=== PATIENT | female | born 1965 | race Caucasian/White ===

== ENCOUNTER 2017-01-30 18:22 | Observation (INO) ==
[2017-01-30] MEDS ORDERED: SALINE FLUSH 10ml SYRINGE IVF PRN (18:39)
--- NOTE | 2017-01-30 18:46 | Emergency Department Report ---
Seizure HPI - General Chief Complaint: Seizure Stated Complaint: Seizure Time Seen by Provider: 01/30/17 18:38 Source: patient, family, other ([facility] staff) Mode of arrival: ambulatory Limitations: no limitations - History of Present Illness HPI Narrative: Patient has had 2 seizures now in the past 3 days. Initially the first seizure was thought to be related to a vasovagal event, however staff that witnessed a seizure is now present, and states that the patient was not going to the bathroom nor straining, and had no vasovagal syndrome prior to the seizure. Patient had her first seizure while she was sitting at the lunch table, suddenly fell to the side and was in a tonic seizure only. 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 Episode lasted approximately 20-25 seconds before resolved, patient had a 15-20 minute confusional episode thereafter. Since only other symptoms have been a sensation of dysuria with urgency for the past week, however she has had 2 negative UAs, but the symptoms seem worse today. Patient has stated history of seizures in the past, but has not had any seizures or seizure medicine for at least 8 years. Patient has mild MR, [facility] [place], and has both staff and a brass pickler that oversee her care daily. complaint: seizure Onset (ago): minute(s) - Related Data Home Medications Medication Instructions Recorded Confirmed Levothyroxine Sodium [Levoxyl] 75 mcg PO ACB #0 09/08/08 01/30/17 Losartan Potassium [Cozaar] 50 mg PO DAILY #0 09/08/08 01/30/17 Potassium Chloride [Klor-Con M20] 20 meq PO DAILY #0 09/08/08 01/30/17 Simvastatin 20 mg PO HS #0 09/08/08 01/30/17 Pioglitazone HCl [Actos] 15 mg PO QAM #0 03/18/12 01/30/17 Propranolol HCl 10 mg PO QID #0 03/18/12 01/30/17 Sucralfate 1 g PO QID #0 01/25/13 01/30/17 Amlodipine Besylate 5 mg PO DAILY #0 04/19/14 01/30/17 Sertraline HCl 100 mg PO DAILY #0 04/19/14 01/30/17 Aspirin [Aspirin EC] 81 mg PO DAILY #0 tab 05/06/15 01/30/17 Medroxyprogesterone Acetate 1 ml IM 3 MONTHS #1 ml 05/06/15 01/30/17 RisperiDONE [RisperDAL] 2 mg PO HS #0 05/06/15 01/30/17 Ziprasidone [Geodon] 60 mg PO BID #0 05/06/15 01/30/17 Lubiprostone [Amitiza] 24 mcg PO DAILY #0 05/28/15 01/30/17 Acetaminophen 650 mg PO Q6H PRN 01/27/17 01/30/17 Acetaminophen [Acetaminophen Extra 1,000 mg PO Q4H PRN 01/27/17 01/30/17 Strength] Benztropine Mesylate [Benztropine 0.5 mg PO BID 01/27/17 01/30/17 Mesylate] Calcium Carbonate [Calcium] 500 - 1,000 mg PO PRN PRN 01/27/17 01/30/17 Cranberry Fruit Extract/Vit C [Azo 450 - 900 mg PO TID PRN 01/27/17 01/30/17 Cranberry Softgel] DiphenhydrAMINE [Benadryl] 25 mg PO Q4H PRN 01/27/17 01/30/17 Docusate Sodium [Colace] 100 mg PO DAILY 01/27/17 01/30/17 Fenofibric Acid (Choline) 135 mg PO DAILY 01/27/17 01/30/17 [Fenofibric Acid] HydrOXYzine [Atarax] 25 mg PO TID 01/27/17 01/30/17 Ibuprofen 400 mg PO Q4H PRN 01/27/17 01/30/17 LORazepam [Ativan] 1 mg PO PRN PRN 01/27/17 01/30/17 Lactase [Lactaid] 3,000 unit PO PRN PRN 01/27/17 01/30/17 Loperamide [Imodium] 2 mg PO QID PRN 01/27/17 01/30/17 Magnesium Hydroxide [Milk of 30 ml PO DAILY PRN 01/27/17 01/30/17 Magnesia] Melatonin 3 mg PO HS 01/27/17 01/30/17 Metformin [Glucophage] 1,000 mg PO BID 01/27/17 01/30/17 Multivit,Tx with Iron,Minerals 1 tab PO DAILY 01/27/17 01/30/17 [Therems-M] Nitroglycerin [Nitrostat] 0.4 mg SL Q5MIN3 PRN 01/27/17 01/30/17 Omeprazole [Omeprazole] 40 mg PO DAILY 01/27/17 01/30/17 Oxybutynin Chloride [Oxybutynin 5 mg PO BID 01/27/17 01/30/17 Chloride] Senna + Docusate [Senna Plus 2 tab PO BID PRN 01/27/17 01/30/17 Tablet] Allergies Allergy/AdvReac Type Severity Reaction Status Date / Time Penicillins Allergy Unknown Verified 01/30/17 18:52 milk AdvReac Unknown LACTOSE Verified 01/30/17 18:52 INTOLERANT Review of Systems All systems: reviewed and negative except as stated PFSH Patient Stated Medical History Seizures Yes Diabetes Mellitus Type 2 Yes Depression Yes Clinic Medical History (Last Reviewed 11/23/16 @ 15:19 by Lucas Helton MD) Diabetes mellitus type 2, controlled (Chronic Medical Unknown) Excellent control of diabetes. Hypothyroidism (Chronic Medical Unknown) Clinically euthyroid. Obesity (BMI 30-39.9) (Chronic Medical) Little worse. Seizure disorder Medical History Updates: MR. Slaughter D/o - Social History Smoking status: Never smoker Physical Exam - Limitations Limitations: no limitations - General General appearance: alert - Normal Exams: Head:: Normocephalic without trauma Eyes:: Pupils are PERRLA w/ EOMI, No scleral icterus, irritation, or foreign bodies noted ENMT:: No facial trauma, nasal exudates, pharyngeal erythema, or exudates are noted Neck:: Full range of motion, without adenopathy, JVD, bruits or thyromegaly Chest/Respirations:: Clear all merritt, with good airflow, and symmetry bilaterally Cardiovascular:: Regular rate and rhythm, without murmur or gallop, Pulses 2+ all extremities, capillary refill, <2 seconds all extremities Abdomen:: Bowel sounds positive, soft, non-tender, non-distended, no hepatosplenomegaly, masses or bruits noted Lymphatic:: No lymphadenopathy, or lymphedema noted Musculoskeletal:: No tenderness, or deformity noted, good range of motion, all extremities Integumentary:: No rashes, hives, or bruising noted, hair and nails, without abnormality Neurological:: Patient is alert, and oriented, cranial nerves, motor/sensory/ cerebellar, exams w/o gross deficits, to observation - Psychiatric Psychiatric exam: Present: flat affect (mildly relational he withdrawn, unusual for the patient) Course Vital Signs Temperature 97.8 F 01/30/17 18:22 Pulse Rate 86 01/30/17 18:22 Respiratory Rate 26 H 01/30/17 18:22 Blood Pressure 133/75 01/30/17 18:22 Pulse Oximetry 98 01/30/17 18:22 Temperature 97.8 F 01/30/17 18:22 Pulse Rate 86 01/30/17 18:22 Respiratory Rate 26 H 01/30/17 18:22 Blood Pressure 133/75 01/30/17 18:22 Pulse Oximetry 98 01/30/17 18:22 Seizure - MDM Narrative Medical decision making narrative: Repeat CBC, CMP, UA, and we'll get CT head CT head normal CBC, CMP, UA all normal Prolactin elevated greater than 90 Patient has not had any recurrent seizure and ER visit. Case is discussed with Dr. Batista, we'll admit observation, begin Keppra, and get neurologic consultation and patient tomorrow - Lab Data Result diagrams: 01/30/17 18:42 01/30/17 18:42 Lab Results 01/30/17 01/30/17 01/30/17 Range/Units 18:42 18:42 18:42 WBC 7.8 (4.5-11.0) T/MM3 RBC 3.78 L (4.00-5.20) M/MM3 Hgb 10.9 L (12-16) GM/DL Hct 34.1 L (36-46) % MCV 90.2 (80-100) UM3 MCH 28.8 (26-34) UUG MCHC 32.0 (31-37) GM/DL RDW Std Deviation 48.5 (36.9-50.2) FL Plt Count 277 (130-400) T/MM3 MPV 9.3 L (9.4-12.4) UM3 Immature Gran % (Auto) 0.1 (0.0-0.5) % Neut % (Auto) 45.1 (33-66) % Lymph % (Auto) 42.0 (23-45) % [place] % (Auto) 10.1 H (0-9.0) % Eos % (Auto) 2.3 (0-4) % Baso % (Auto) 0.4 (0-2) % Neut # (Auto) 3.5 (1.8-7.7) T/MM3 Lymph # (Auto) 3.3 (1-4.8) T/MM3 [place] # (Auto) 0.8 (0-0.8) T/MM3 Eos # (Auto) 0.2 (0-0.5) T/MM3 Baso # (Auto) 0.0 (0-0.2) T/MM3 Abs Immat Gran (auto) 0.01 (0.00-0.03) T/MM3 Turbidity < 20 (0-20) Sodium 145 H (134-144) MEQ/L Potassium 3.9 (3.6-5) MEQ/L Chloride 108 H (98-107) MEQ/L Carbon Dioxide 17 L (22-30) MEQ/L Anion Gap 20 H (5-15) MEQ/L BUN 14.0 (7-17) MG/DL Creatinine 0.7 (0.7-1.2) MG/DL GFR Calculation 88 BUN/Creatinine Ratio 20 (6-26) RATIO Glucose 104 (65-110) MG/DL Calculated Osmolality 280 (261-280) MOSM/KG Calcium 10.1 (8.4-10.2) MG/DL Total Bilirubin 0.50 (0.20-1.30) MG/DL Conjugated Bilirubin 0.00 (0.00-0.30) MG/DL Unconjugated Bilirubin 0.10 (0.00-1.1) MG/DL Icterus Index < 2 (0-7) AST 29 (14-36) U/L ALT 34 (9-52) U/L Alkaline Phosphatase 44 (38-126) U/L Total Protein 6.9 (6.3-8.2) G/DL Albumin 4.3 (3.5-5.0) G/DL Globulin 2.6 (2.4-3.6) G/DL Albumin/Globulin Ratio 1.7 (1.1-2.2) RATIO Prolactin 90.5 NG/ML Specimen Hemolysis < 15 (0-25) Ur Collection Type Urine, clean catch Urine Color Yellow (YELLOW) Urine Clarity Clear Urine pH 5.5 (5.0-8.0) Ur Specific [place] 1.020 (1.015-1.025) Urine Protein Negative (NEGATIVE) Urine Glucose (UA) Negative (NEGATIVE) Urine Ketones Negative (NEGATIVE) Urine Occult Blood Negative (NEGATIVE) Urine Nitrate Negative (NEGATIVE) Urine Bilirubin Negative (NEGATIVE) Urine Urobilinogen 0.2 (NORMAL) EU/DL Ur Leukocyte Esterase Negative (NEGATIVE) Urinalysis Comment Microscopic not ind. Disposition Clinical Impression: Recurrent seizures Disposition: NM Condition: Stable Prescriptions: No Action Losartan Potassium [Cozaar] 50 mg PO DAILY #0 Levothyroxine Sodium [Levoxyl] 75 mcg PO ACB #0 Simvastatin 20 mg PO HS #0 Pioglitazone HCl [Actos] 15 mg PO QAM #0 Amlodipine Besylate 5 mg PO DAILY #0 RisperiDONE [RisperDAL] 2 mg PO HS #0 Aspirin [Aspirin EC] 81 mg PO DAILY #0 tab Multivit,Tx with Iron,Minerals [Therems-M] 1 tab PO DAILY Oxybutynin Chloride [Oxybutynin Chloride] 5 mg PO BID Omeprazole [Omeprazole] 40 mg PO DAILY Acetaminophen [Acetaminophen Extra Strength] 1,000 mg PO Q4H PRN PRN Reason: Pain Lactase [Lactaid] 3,000 unit PO PRN PRN PRN Reason: Prn Orders LORazepam [Ativan] 1 mg PO PRN PRN PRN Reason: Prn Orders Ibuprofen 400 mg PO Q4H PRN PRN Reason: Pain HydrOXYzine [Atarax] 25 mg PO TID Melatonin 3 mg PO HS DiphenhydrAMINE [Benadryl] 25 mg PO Q4H PRN PRN Reason: Prn Orders Cranberry Fruit Extract/Vit C [Azo Cranberry Softgel] 450 - 900 mg PO TID PRN PRN Reason: Urinary Pain Loperamide [Imodium] 2 mg PO QID PRN PRN Reason: Diarrhea Docusate Sodium [Colace] 100 mg PO DAILY Benztropine Mesylate [Benztropine Mesylate] 0.5 mg PO BID Nitroglycerin [Nitrostat] 0.4 mg SL Q5MIN3 PRN PRN Reason: Chest Pain Magnesium Hydroxide [Milk of Magnesia] 30 ml PO DAILY PRN PRN Reason: Constipation Potassium Chloride [Klor-Con M20] 20 meq PO DAILY #0 Propranolol HCl 10 mg PO QID #0 Sucralfate 1 g PO QID #0 Sertraline HCl 100 mg PO DAILY #0 Ziprasidone [Geodon] 60 mg PO BID #0 Medroxyprogesterone Acetate 1 ml IM 3 MONTHS #1 ml Lubiprostone [Amitiza] 24 mcg PO DAILY #0 Metformin [Glucophage] 1,000 mg PO BID Senna + Docusate [Senna Plus Tablet] 2 tab PO BID PRN PRN Reason: Constipation Calcium Carbonate [Calcium] 500 - 1,000 mg PO PRN PRN PRN Reason: Heartburn Acetaminophen 650 mg PO Q6H PRN PRN Reason: Pain Fenofibric Acid (Choline) [Fenofibric Acid] 135 mg PO DAILY Referrals: Kaya Bolden MD [Family Provider] - - Seen By: physician
[2017-01-30] MEDS ORDERED: LEVETIRACETAM INJ 500 MG in NS 100 ML IV ONE (19:29)
[2017-01-30] MEDS ORDERED: LEVETIRACETAM 500 MG TABLET PO ONE (19:57)
--- NOTE | 2017-01-30 19:57 | History & Physical Report ---
<Patricio Batista - Last Filed: 01/30/17 21:46> History of Present Illness Date: 01/30/17 Chief complaint: Seizure HPI: Very pleasant 51-year-old female who lives in a longterm for chronic cognitive impairment that is mild presents to the emergency room tonight with seizures. On January 27 she had a seizure that was initially diagnosis of vasovagal post-syncopal seizure, (please see ER note from that visit) however this evening had another episode, that appeared consistent with a generalized tonic-clonic seizure, she was serving dinner, seizure lasted about 30 seconds, was postictal for 30 minutes. She returns to close to her baseline status except observer said she wasn't quite as outgoing as she usually was a bit more subdued than usual. CT head reportedly normal As I visit with the patient I am unable to clearly elicit a history about the events of this evening. She tells me she does not feel well and has been sick but cannot tell me more clearly timing She says maybe some issue with her breathing and more prominently "cannot sleep at night" and that she is worried she wont be able to sleep Review of Systems ROS unobtainable: due to mental status PFSH Patient Stated Medical History Seizures Yes Diabetes Mellitus Type 2 Yes Other GI Yes: DIVERTICULITIS Other Yes: FREQUENCY RECENTLY Depression Yes Other Reproductive Yes: AMENORRHEA PER PT Clinic Medical History (Last Reviewed 11/23/16 @ 15:19 by Lucas Helton MD) Diabetes mellitus type 2, controlled (Chronic Medical Unknown) Excellent control of diabetes. Hypothyroidism (Chronic Medical Unknown) Clinically euthyroid. Obesity (BMI 30-39.9) (Chronic Medical) Little worse. Medical History Updates: MR. Slaughter D/o Surgical History: unknown Family History: not able to obtain - Social History Smoking status: Never smoker Current residence: Longterm Medications Home Medications Medication Instructions Recorded Confirmed Type Levothyroxine Sodium [Levoxyl] 75 mcg PO ACB #0 09/08/08 01/30/17 History Losartan Potassium [Cozaar] 50 mg PO DAILY #0 09/08/08 01/30/17 History Potassium Chloride [Klor-Con M20] 20 meq PO DAILY #0 09/08/08 01/30/17 History Simvastatin 20 mg PO HS #0 09/08/08 01/30/17 History Pioglitazone HCl [Actos] 15 mg PO QAM #0 03/18/12 01/30/17 History Propranolol HCl 10 mg PO QID #0 03/18/12 01/30/17 History Sucralfate 1 g PO QID #0 01/25/13 01/30/17 History Amlodipine Besylate 5 mg PO DAILY #0 04/19/14 01/30/17 History Sertraline HCl 100 mg PO DAILY #0 04/19/14 01/30/17 History Aspirin [Aspirin EC] 81 mg PO DAILY #0 tab 05/06/15 01/30/17 History Medroxyprogesterone Acetate 1 ml IM 3 MONTHS #1 ml 05/06/15 01/30/17 History RisperiDONE [RisperDAL] 2 mg PO HS #0 05/06/15 01/30/17 History Ziprasidone [Geodon] 60 mg PO BID #0 05/06/15 01/30/17 History Lubiprostone [Amitiza] 24 mcg PO DAILY #0 05/28/15 01/30/17 History Acetaminophen 650 mg PO Q6H PRN 01/27/17 01/30/17 History Acetaminophen [Acetaminophen Extra 1,000 mg PO Q4H PRN 01/27/17 01/30/17 History Strength] Benztropine Mesylate [Benztropine 0.5 mg PO BID 01/27/17 01/30/17 History Mesylate] Calcium Carbonate [Calcium] 500 - 1,000 mg PO PRN PRN 01/27/17 01/30/17 History Cranberry Fruit Extract/Vit C [Azo 450 - 900 mg PO TID PRN 01/27/17 01/30/17 History Cranberry Softgel] DiphenhydrAMINE [Benadryl] 25 mg PO Q4H PRN 01/27/17 01/30/17 History Docusate Sodium [Colace] 100 mg PO DAILY 01/27/17 01/30/17 History Fenofibric Acid (Choline) 135 mg PO DAILY 01/27/17 01/30/17 History [Fenofibric Acid] HydrOXYzine [Atarax] 25 mg PO TID 01/27/17 01/30/17 History Ibuprofen 400 mg PO Q4H PRN 01/27/17 01/30/17 History LORazepam [Ativan] 1 mg PO PRN PRN 01/27/17 01/30/17 History Lactase [Lactaid] 3,000 unit PO PRN PRN 01/27/17 01/30/17 History Loperamide [Imodium] 2 mg PO QID PRN 01/27/17 01/30/17 History Magnesium Hydroxide [Milk of 30 ml PO DAILY PRN 01/27/17 01/30/17 History Magnesia] Melatonin 3 mg PO HS 01/27/17 01/30/17 History Metformin [Glucophage] 1,000 mg PO BID 01/27/17 01/30/17 History Multivit,Tx with Iron,Minerals 1 tab PO DAILY 01/27/17 01/30/17 History [Therems-M] Nitroglycerin [Nitrostat] 0.4 mg SL Q5MIN3 PRN 01/27/17 01/30/17 History Omeprazole [Omeprazole] 40 mg PO DAILY 01/27/17 01/30/17 History Oxybutynin Chloride [Oxybutynin 5 mg PO BID 01/27/17 01/30/17 History Chloride] Senna + Docusate [Senna Plus 2 tab PO BID PRN 01/27/17 01/30/17 History Tablet] Allergies Allergy/AdvReac Type Severity Reaction Status Date / Time Penicillins Allergy Unknown Verified 01/30/17 18:52 milk AdvReac Unknown LACTOSE Verified 01/30/17 18:52 INTOLERANT Exam Vital Signs: Temperature 97.8 F 01/30/17 18:22 Pulse Rate 86 01/30/17 18:22 Respiratory Rate 26 H 01/30/17 18:22 Blood Pressure 133/75 01/30/17 18:22 Pulse Oximetry 98 01/30/17 18:22 Height/Weight/BMI: Height 1.45 m Weight 67.8 kg - Constitutional Present: no acute distress (appears anxious and apprehensive to visit with me. Unable to provide coherent timeline of HPI or recent ROS) - Routine HEENT Exam Head: Present: normocephalic, atraumatic - Routine Chest/Breast/Axilla Exam Chest wall: Absent: tenderness - Routine Respiratory Exam Present: CTA bilaterally. Absent: accessory muscle use - Routine Cardiovascular Exam Present: RRR, S1, S2, no murmur - Routine Abdominal Exam Present: soft, tenderness (mildly tender diffusely but does not appear to have peritoneal signs) - Routine Extremities Exam Present: no edema. Absent: cyanosis, clubbing - Routine Skin Exam Present: intact - Routine Neurological Exam Present: alert (affect and exam consistent with cognitive delay/impairment. Appears to move extremeities equally without impairment ) Results - Labs CBC & Chem 7: 01/30/17 18:42 01/30/17 18:42 Assessment and Plan (1) Recurrent seizures Current visit: Yes Status: Acute 01/30/17 21:55 IV keppra 500 mg admin x 1 and PO ordered for am. I have entered for consult with Dr Casas to visit with her in AM and provide further recs. CT head reportedly normal, but MRI brain/EEG may be indicated, she may or may not comply with this. She is a bit agitated this bonita and I've ordered PO ativan and PRN haldol/ativan (she has refused IV) (2) Diabetes mellitus type 2, controlled Problem details: Excellent control of diabetes. Current visit: No Status: Chronic 01/30/17 21:57 accuchecks ac hs and pRN correctional insulin, will check A1c (3) Hypothyroidism Problem details: Clinically euthyroid. Current visit: No Status: Chronic (4) Obesity (BMI 30-39.9) Problem details: Little worse. Current visit: No Status: Chronic (5) HTN (hypertension) Current visit: Yes Status: Acute 01/30/17 21:57 cont home meds DVT Prophylaxis: Lovenox Resuscitation Status: Full Code Hospital Course Summary Disclaimer: The visit summary below is not to be considered part of the above Progress Note. <Fransisca Celaya - Last Filed: 01/31/17 15:03> History of Present Illness Date: 01/31/17 Exam Vital Signs: Temperature 96.3 F L 01/31/17 07:37 Pulse Rate 100 01/31/17 08:00 Respiratory Rate 18 01/31/17 07:37 Blood Pressure 127/65 01/31/17 07:37 Pulse Oximetry 98 01/31/17 07:37 Height/Weight/BMI: Weight 68 kg Results - Labs CBC & Chem 7: 01/30/17 18:42 01/30/17 18:42 Assessment and Plan (1) Obesity (BMI 30-39.9) Problem details: Little worse. Current visit: No Status: Chronic (2) Hypothyroidism Problem details: Clinically euthyroid. Current visit: No Status: Chronic (3) Diabetes mellitus type 2, controlled Problem details: Excellent control of diabetes. Current visit: No Status: Chronic (4) Recurrent seizures Current visit: Yes Status: Acute (5) HTN (hypertension) Current visit: Yes Status: Acute Assessment and Plan: Dr. Ochoa's note reviewed. Liliya interviewed and examined. CC: Seizures HPI: Patient is unable to provide any history reporting only that she is here because she got stuck in the bathroom. ER records indicate she's had 2 seizures in the past 4 days. She was evaluated in the emergency room on both occasions. The first seizure was felt to be a vasovagal event and no interventions were made. On that occasion the patient was seated at the lunch table, felt the side and had tonic activity briefly. 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 The seizure lasted for 20-25 seconds followed by a 20 minute period of confusion. Patient has known history of seizures but had been seizure free for 8 years. Bed Spring Maker accompanied the patient to the ER last night but is not currently present. PH/SH/FH: agree with that recorded above by Dr. Ochoa. Patient reports that she's had a tonsillectomy and a [id number] is not verified. She denies tobacco or illicit drug use but reports that she drinks wine occasionally. Family history is unknown. ROS: 10 point review difficult to obtain due to patient's limited ability to provide history but appears to be entirely negative except complaints that she is hungry, her bladder hurts, her bowels hurt, and she is constipated. Nursing reports urinary frequency with low volumes on bladder scan. EXAM: General-moderately obese female, NAD, awake/responsive HEENT-PERRL, EOMI without nystagmus, conjunctiva clear, sclera anicteric, conjugate gaze, facial structures symmetric, oropharynx clear, neck supple and without adenopathy Lungs-respirations nonlabored, good airflow, breath sounds clear Cardiac-regular rhythm, diminished heart tones-S1-S2 Abd-soft, nontender, bowel sounds present Ext-without edema Skin-without rash or evidence of wounds except some superficial perioral wounds and possible small abrasion/bruise on the distal tongue Neuro-facial structure symmetric, EOMI, tongue midline; ambulates without assistance, symmetric use of arms, no tremor. Currently is not cooperating with motor testing but withdraws all 4 extremities briskly to stimulation distally and acknowledges touch/tickle 4 extremities Psych-oriented to hospital but cannot identify a year DATA: UA negative, hemoglobin 10.9, electrolytes within normal limits, liver enzymes normal, creatinine 0.7. TSH 1.4 to, prolactin 90.5 CT head reviewed by myself-no acute pathology Telemetry strips reviewed by myself-sinus rhythm, low-grade sinus tachycardia. A/P: Seizure disorder, recurrent Diabetes mellitus, type II, no long-term insulin use or known complications Urinary frequency Hypothyroidism Hypertension Obesity Normocytic anemia Discussed with Dr. Casas, EEG pending this afternoon. Trileptal to be initiated 150 mg twice a day for 1 week with dose to be increased to 300 mg thereafter in conjunction with current medications. Anticipate patient can return to usual facility following completion of EEG. Nursing reports urinary frequency but UA is negative and no evidence of urinary retention; may be a reflection of patient anxiety and unfamiliar environment. Good oral intake, blood pressure stable. Orthostatic blood pressure to be checked 1. Hospital Course Summary Disclaimer: The visit summary below is not to be considered part of the above Progress Note.
[2017-01-30] MEDS ORDERED: ONDANSETRON 4 MG/2 ML INJECTION IVP PRN (20:58)
[2017-01-30] MEDS ORDERED: IBUPROFEN 600 MG TABLET PO PRN (20:58)
[2017-01-30] MEDS ORDERED: ACETAMINOPHEN 325 MG TABLET PO PRN ×2 (20:58→22:04)
[2017-01-30] MEDS ORDERED: HALOPERIDOL DECANOATE 50 MG/ML IM PRN (21:45)
[2017-01-30] MEDS ORDERED: IBUPROFEN 200 MG TABLET PO PRN (22:04)
[2017-01-30] MEDS ORDERED: LACTAID FAST TABLET PO PRN (22:04)
[2017-01-30] MEDS ORDERED: NITROGLYCERIN 0.4 MG SUBLINGUAL TABLET SL PRN (22:04)
[2017-01-30] MEDS ORDERED: SENNA + DOCUSATE TABLET PO PRN (22:04)
[2017-01-30] MEDS ORDERED: LOPERAMIDE 2 MG CAPSULE PO PRN (22:04)
[2017-01-30] MEDS ORDERED: GLUCOSE ORAL GEL 40% 37.5gm PO PRN (22:09)
[2017-01-30] MEDS ORDERED: INSULIN ASPART 100unit/ml INJECTION SQ PRN (22:09)
[2017-01-30] MEDS ORDERED: DEXTROSE 50% SYRINGE 50ml (1 AMP) IVP PRN (22:09)
[2017-01-31] MEDS ORDERED: HALOPERIDOL 5 MG/ML INJECTION IM ONE (01:39)
[2017-01-31] MEDS ORDERED: FALL RISK - PHARMACY CONSULT XX ONE (02:21)
[2017-01-31] MEDS: LORazepam 1 MG TABLET PO PRN ×2 (04:31→11:08)
[2017-01-31] MEDS ORDERED: LEVOTHYROXINE 75 MCG TABLET PO SCH (06:30)
--- NOTE | 2017-01-31 08:18 | CT Scan Report ---
Indication: recurrent seizures PROCEDURE: CT head/brain wo con: Encounter: Initial Comparison: October 09, 2014 Technique: Axial CT images through the head were performed without contrast. Iterative Reconstruction dose reducing technique was utilized. FINDINGS: The ventricles are of normal size, shape, and contour for the patient's age. The brainstem, cerebellum, and cerebral hemispheres have a normal morphology and CT attenuation. There is no evidence of midline displacement. No hemorrhage, signs of acute territorial stroke, mass effect, mass lesions, or edema is evident. The visualized portions of the skull base, midface, and calvarium demonstrate no abnormality. The paranasal sinuses are well aerated and free of significant disease. The tympanic and mastoid cavities appear normal. IMPRESSION: No acute intracranial abnormality or hemorrhage. There is a preliminary report by [employer]. .
[2017-01-31] MEDS: SUCRALFATE 1 GM TABLET PO SCH ×3 (08:52→17:25)
[2017-01-31] MEDS: PROPRANOLOL 10 MG TABLET PO SCH ×3 (08:52→17:25)
[2017-01-31] MEDS ORDERED: ZIPRASIDONE 60 MG CAPSULE PO SCH (09:00)
[2017-01-31] MEDS ORDERED: LOSARTAN 50 MG TABLET PO SCH (09:00)
[2017-01-31] MEDS ORDERED: SERTRALINE 100 MG TABLET PO SCH (09:00)
[2017-01-31] MEDS ORDERED: PIOGLITAZONE 15 MG TABLET PO SCH (09:00)
[2017-01-31] MEDS ORDERED: LUBIPROSTONE 24 MCG CAPSULE PO SCH (09:00)
[2017-01-31] MEDS ORDERED: ASPIRIN *EC* 81 MG TABLET PO SCH (09:00)
[2017-01-31] MEDS ORDERED: AMLODIPINE 5 MG TABLET PO SCH (09:00)
[2017-01-31] MEDS ORDERED: BENZTROPINE 1 MG TABLET PO SCH (09:00)
--- NOTE | 2017-01-31 13:43 | Consultation ---
DATE OF CONSULTATION 01/31/2017 REFERRING PHYSICIAN Rigo Browne MD PATIENT'S CHIEF COMPLAINT Seizure. HISTORY OF PRESENT ILLNESS Patient is a 51-year-old female who lives in a detention due to chronic mental disorder and mild mental retardation. The patient presented to the emergency room twice in the past four days. She initially had an event during bathroom usage in which she collapsed and regained consciousness quickly. This was diagnosed as a vasovagal syncope. The patient was sent back home at that time. The patient had another event during which she was serving food in her detention area and she suddenly collapsed and had generalized tonic-clonic seizure activity lasting for about 30 seconds. This was followed by a postictal confusion and fatigue lasting up to 30 minutes. The patient had incontinence of urine. She had no tongue biting. The patient had no dizziness or vision loss prior to collapsing. The patient said that she has been feeling sick for no apparent reason. She has been having some recurrent urination and bowel problem. The patient has a history of diabetes mellitus which can put her at risk for syncope and autonomic dysfunction. She also takes several medications for mood disorder. The patient has a prior history of seizure when she was younger. She did not have any seizure for the past 10 years as per her guardian. The patient had a CT of the head in the ER that showed no acute abnormalities. Her lab workup showed no signs of sepsis. Her sodium level was slightly elevated at 145. Her urine test was unremarkable. PHYSICAL EXAMINATION On physical examination, the patient was awake, alert, oriented to self, place and situation. Patient was able to follow commands easily. Her pupils were round, reactive and equal. Extraocular muscles were intact. Visual field was full. Speech was hesitant. Motor examination was 5-/5 in all extremities. Sensory examination was symmetrical for light touch, pinprick and temperature sensation. Deep tendon reflexes were 2/4. Plantar reflexes were in flexion bilaterally. Coordination for [id number] was slow bilaterally. ASSESSMENT Brief convulsive seizure activity associated with postictal confusion and incontinence. This can represent a recurrent manifestation of complex partial seizure. Other consideration includes atypical syncope with convulsions. This this can be triggered by the history of diabetes mellitus autonomic neuropathy and hypotension. PLAN 1. Obtain an EEG if possible during admission. 2. Start patient on Trileptal 150 mg p.o. b.i.d. for a week, then 300 mg p.o. b.i.d. for seizure protection and mood disorder. 3. Rule out cardiac arrhythmia and orthostatic hypotension during admission. 4. Provide good fluid intake and seizure precautions. MTDD
--- NOTE | 2017-01-31 16:34 | Discharge Instructions ---
Discharge Plan - Med Rec/Dispo Referrals/Follow Up: Kaya Bolden MD [Family Provider] - (1-2 weeks) Prescriptions: New OXcarbazepine [Trileptal] 300 mg PO BID #60 tab OXcarbazepine [Trileptal] 150 mg PO BID #14 tab Continue Losartan Potassium [Cozaar] 50 mg PO DAILY #0 Levothyroxine Sodium [Levoxyl] 75 mcg PO ACB #0 Simvastatin 20 mg PO HS #0 Pioglitazone HCl [Actos] 15 mg PO QAM #0 Amlodipine Besylate 5 mg PO DAILY #0 RisperiDONE [RisperDAL] 2 mg PO HS #0 Aspirin [Aspirin EC] 81 mg PO DAILY #0 tab Multivit,Tx with Iron,Minerals [Therems-M] 1 tab PO DAILY Oxybutynin Chloride 5 mg PO BID Omeprazole 40 mg PO DAILY Acetaminophen [Acetaminophen Extra Strength] 1,000 mg PO Q4H PRN PRN Reason: Pain Lactase [Lactaid] 3,000 unit PO PRN PRN PRN Reason: Prn Orders Ibuprofen 400 mg PO Q4H PRN PRN Reason: Pain HydrOXYzine [Atarax] 25 mg PO TID Melatonin 3 mg PO HS DiphenhydrAMINE [Benadryl] 25 mg PO Q4H PRN PRN Reason: Prn Orders Cranberry Fruit Extract/Vit C [Azo Cranberry Softgel] 450 - 900 mg PO TID PRN PRN Reason: Urinary Pain Loperamide [Imodium] 2 mg PO QID PRN PRN Reason: Diarrhea Docusate Sodium [Colace] 100 mg PO DAILY Benztropine Mesylate 0.5 mg PO BID Nitroglycerin [Nitrostat] 0.4 mg SL Q5MIN3 PRN PRN Reason: Chest Pain Magnesium Hydroxide [Milk of Magnesia] 30 ml PO DAILY PRN PRN Reason: Constipation Potassium Chloride [Klor-Con M20] 20 meq PO DAILY #0 Propranolol HCl 10 mg PO QID #0 Sucralfate 1 g PO QID #0 Sertraline HCl 100 mg PO DAILY #0 Ziprasidone [Geodon] 60 mg PO BID #0 Medroxyprogesterone Acetate 1 ml IM 3 MONTHS #1 ml Lubiprostone [Amitiza] 24 mcg PO DAILY #0 Metformin [Glucophage] 1,000 mg PO BID Senna + Docusate [Senna Plus Tablet] 2 tab PO BID PRN PRN Reason: Constipation Calcium Carbonate [Calcium] 500 - 1,000 mg PO PRN PRN PRN Reason: Heartburn Acetaminophen 650 mg PO Q6H PRN PRN Reason: Pain Fenofibric Acid (Choline) [Fenofibric Acid] 135 mg PO DAILY LORazepam [Ativan] 1 mg PO PRN PRN #10 tab PRN Reason: Prn Orders - Disposition 04 To [facility] Home/Facility
--- NOTE | 2017-01-31 16:38 | Extended Care Facility Orders ---
Admission Orders Admit to:: [facility] Allergies/Adverse Reactions: Allergies Penicillins Allergy (Unknown, Verified 01/30/17 18:52) milk Adverse Reaction (Unknown, Verified 01/30/17 18:52) LACTOSE INTOLERANT Admitting Diagnosis: Seizure Admitting Physician: Fransisca Celaya MD Attending Physician: Fransisca Celaya MD Code Status: Full Code Rehab Potential: fair Rehab Prognosis: fair Diet: Diabetic Wound/Incision Care: Not Applicable May use Facility Protocol or Standing Orders: Yes May have flu vaccine: Yes [facility] Certification: I certify that SNF services are required to be given on an Inpatient basis because of the patients need for longterm care on a continuing basis for the condition(s) for which he/she received inpatient hospital services prior to his/her transfer to the SNF. SNF inpatient care is necessary for the following reasons Indication for [facility]: Not Applicable - Additional Information In Event of Arrest: Start CPR,call 911,send patient to the ER Resident is Aware of Diagnosis: No Referrals: Kaya Bolden MD [Family Provider] - (1-2 weeks) Additional Orders: Patient started on Trileptal 150 mg twice a day for 1 week after which dose should be increased to 300 mg twice daily (increased dose 02/07)-for seizures. Monitor blood sugars fasting and 2 hours after meals 2 days a week. Resume prior orders.
--- NOTE | 2017-01-31 17:03 | Discharge Summary ---
Discharge Summary- Blank Discharge Summary: Liliya was hospitalized overnight following seizure activity at her skilled nursing. Please refer to my addendum to the H&P for details of today's events. EEG was obtained late in the day today and report is pending at discharge. She was seen in consultation by Dr. Casas who recommended initiating Trileptal at a dose of 150 mg twice a day with dose to be increased to 300 mg in 1 week. Laboratory data was unremarkable and blood pressure/blood sugars were well controlled during the hospital course. Patient will follow up with her primary care physician in one to 2 weeks.
[2017-01-31 17:21] VITALS: RESP 20; TEMP 97.8; O2SAT 100
[2017-01-31 17:22] VITALS: BP 177/102; PULSE 117
[2017-01-31] MEDS ORDERED: RisperiDONE 2 MG TABLET PO SCH (21:00)
[2017-01-31] MEDS ORDERED: OXCARBAZEPINE 150 MG TABLET PO SCH (21:00)
[2017-01-31] MEDS ORDERED: MELATONIN 1 MG TABLET PO SCH (21:00)
[2017-01-31] MEDS ORDERED: LORazepam 1 MG TABLET PO SCH (21:00)
[2017-01-31] MEDS ORDERED: SIMVASTATIN 20 MG TABLET PO SCH (21:00)
== END 2017-01-31 18:00 | disposition home or self-care (01) ==
LOC: MED 18:22 → ED 18:22 → SUATTDRO 19:53 → MED 20:30
PROVIDERS: ADMIT Pediatrics; ATTEND Internal Medicine

== ENCOUNTER 2017-02-27 10:25 | Inpatient (IN) ==
--- NOTE | 2017-02-27 10:46 | Emergency Department Report ---
General Adult HPI - General Chief complaint: Skin/Abscess/Foreign Body Stated complaint: cellulitis Time Seen by Provider: 02/27/17 10:45 Source: patient, family Mode of arrival: ambulatory Limitations: no limitations - History of Present Illness HPI narrative: 51-year-old female presents to the emergency department with a chief complaint of an itchy rash over her bilateral lower extremities and abdomen. Rash was noted on Monday. Patient describes the rash is itchy. It is moderate in nature. No radiation. She does not note any exacerbating or remitting factors. No other complaints or associated symptoms. Patient was at rest. When her symptoms began. Symptoms been persistent in nature since onset. No other complaints or associated symptoms. Patient does have a slight cognitive deficit. - Related Data Home Medications Medication Instructions Recorded Confirmed Levothyroxine Sodium [Levoxyl] 75 mcg PO ACB #0 09/08/08 02/27/17 Losartan Potassium [Cozaar] 50 mg PO DAILY #0 09/08/08 02/27/17 Potassium Chloride [Klor-Con M20] 20 meq PO DAILY #0 09/08/08 02/27/17 Simvastatin 20 mg PO HS #0 09/08/08 02/27/17 Pioglitazone HCl [Actos] 15 mg PO QAM #0 03/18/12 02/27/17 Propranolol HCl 10 mg PO QID #0 03/18/12 02/27/17 Sucralfate 1 g PO QID #0 01/25/13 02/27/17 Amlodipine Besylate 5 mg PO DAILY #0 04/19/14 02/27/17 Sertraline HCl 100 mg PO DAILY #0 04/19/14 02/27/17 Aspirin [Aspirin EC] 81 mg PO DAILY #0 tab 05/06/15 02/27/17 Medroxyprogesterone Acetate 1 ml IM 3 MONTHS #1 ml 05/06/15 02/27/17 RisperiDONE [RisperDAL] 2 mg PO HS #0 05/06/15 02/27/17 Ziprasidone [Geodon] 60 mg PO BID #0 05/06/15 02/27/17 Lubiprostone [Amitiza] 24 mcg PO DAILY #0 05/28/15 02/27/17 Acetaminophen 650 mg PO Q6H PRN 01/27/17 02/27/17 Acetaminophen [Acetaminophen Extra 1,000 mg PO Q4H PRN 01/27/17 02/27/17 Strength] Calcium Carbonate [Calcium] 500 - 1,000 mg PO PRN PRN 01/27/17 02/27/17 Cranberry Fruit Extract/Vit C [Azo 450 - 900 mg PO TID PRN 01/27/17 02/27/17 Cranberry Softgel] DiphenhydrAMINE [Benadryl] 25 mg PO Q4H PRN 01/27/17 02/27/17 Docusate Sodium [Colace] 100 mg PO DAILY 01/27/17 02/27/17 Fenofibric Acid (Choline) 135 mg PO DAILY 01/27/17 02/27/17 [Fenofibric Acid] HydrOXYzine [Atarax] 25 mg PO TID 01/27/17 02/27/17 Ibuprofen 400 mg PO Q4H PRN 01/27/17 02/27/17 Lactase [Lactaid] 3,000 unit PO PRN PRN 01/27/17 02/27/17 Loperamide [Imodium] 2 mg PO QID PRN 01/27/17 02/27/17 Magnesium Hydroxide [Milk of 30 ml PO DAILY PRN 01/27/17 02/27/17 Magnesia] Melatonin 3 mg PO HS 01/27/17 02/27/17 Metformin [Glucophage] 1,000 mg PO BID 01/27/17 02/27/17 Multivit,Tx with Iron,Minerals 1 tab PO DAILY 01/27/17 02/27/17 [Therems-M] Nitroglycerin [Nitrostat] 0.4 mg SL Q5MIN3 PRN 01/27/17 02/27/17 Omeprazole 40 mg PO DAILY 01/27/17 02/27/17 Oxybutynin Chloride 5 mg PO BID 01/27/17 02/27/17 Senna + Docusate [Senna Plus 2 tab PO BID PRN 01/27/17 02/27/17 Tablet] Chlorpheniramine/Pseudoephed 1 each PO BID PRN 02/27/17 02/27/17 [Sudogest Cold & Allergy Tab] Guaifenesin Oral Liq [Robitussin 10 ml PO Q4H PRN 02/27/17 02/27/17 Liq] LORazepam [Ativan] 1 mg PO BID 02/27/17 02/27/17 LORazepam [Ativan] 1 mg PO PRN PRN 02/27/17 02/27/17 Simethicone [Mylicon] 80 mg PO BID PRN 02/27/17 02/27/17 Previous Rx's Medication Instructions Recorded OXcarbazepine [Trileptal] 300 mg PO BID #60 tab 01/31/17 Allergies Allergy/AdvReac Type Severity Reaction Status Date / Time Penicillins Allergy Unknown Verified 02/27/17 14:51 milk AdvReac Unknown LACTOSE Verified 02/27/17 14:51 INTOLERANT Review of Systems Constitutional: Denies: fever, chills Eyes: Denies: eye pain, vision change ENT: Denies: ear pain, dental pain Cardiovascular: Denies: chest pain, palpitations Respiratory: Denies: cough, dyspnea Gastrointestinal: Denies: abdominal pain, nausea, vomiting, diarrhea Genitourinary: Denies: urgency, dysuria Musculoskeletal: Denies: back pain, arthralgia Integumentary: Reports: rash. Denies: erythema Neurological: Denies: headache, numbness Psychiatric: Denies: anxiety, depression Endocrine: Denies: fatigue, heat or cold intolerance Hematological/Lymphatic: Denies: easy bleeding, easy bruising Allergic/Immunologic: Denies: facial swelling, urticaria PFSH Patient Stated Medical History Seizures Yes Diabetes Mellitus Type 2 Yes Other GI Yes: DIVERTICULITIS Other Yes: FREQUENCY RECENTLY Depression Yes Other Reproductive Yes: [facility]ORRHEA PER PT [facility] Medical History (Last Reviewed 11/23/16 @ 15:19 by Lucas Helton MD) Diabetes mellitus type 2, controlled (Chronic Medical Unknown) Excellent control of diabetes. Hypothyroidism (Chronic Medical Unknown) Clinically euthyroid. Obesity (BMI 30-39.9) (Chronic Medical) Little worse. Medical History Updates: MR. Slaughter D/o Surgical History: Unable to obtain from patient. Family History: Reviewed and noncontributory. - Social History Smoking status: Never smoker Substance use type: does not use Alcohol intake frequency: does not drink Current residence: [facility] Physical Exam - Limitations Limitations: no limitations - General General appearance: alert, in no apparent distress - Normal Exams: Head:: Normocephalic without trauma Eyes:: Pupils are PERRLA w/ EOMI, No scleral icterus, irritation, or foreign bodies noted ENMT:: No facial trauma, nasal exudates, pharyngeal erythema, or exudates are noted Dental: No fractured, loose, or missing teeth noted Neck:: Full range of motion, without adenopathy, JVD, bruits or thyromegaly Chest/Respirations:: Clear all merritt, with good airflow, and symmetry bilaterally Cardiovascular:: Regular rate and rhythm, without murmur or gallop, Pulses 2+ all extremities, capillary refill, <2 seconds all extremities Abdomen:: Bowel sounds positive, soft, non-tender, non-distended, no hepatosplenomegaly, masses or bruits noted Lymphatic:: No lymphadenopathy, or lymphedema noted Musculoskeletal:: No tenderness, or deformity noted, good range of motion, all extremities Integumentary:: No rashes, hives, or bruising noted, hair and nails, without abnormality (maculopapular rash which blanches with pressure noted over anterior bilateral lower extremities. No secondary sign of infection.) Neurological:: Patient is alert, and oriented, cranial nerves, motor/sensory/ cerebellar, exams w/o gross deficits, to observation Psychiatric:: Patient exhibits, appropriate attention, emotion and affect Course Vital Signs Temperature 97.3 F 02/27/17 10:30 Pulse Rate 92 02/27/17 10:30 Respiratory Rate 20 02/27/17 10:30 Blood Pressure 131/53 02/27/17 10:30 Pulse Oximetry 100 02/27/17 10:30 Temperature 97.6 F 02/27/17 13:53 Pulse Rate 99 02/27/17 13:58 Respiratory Rate 18 02/27/17 13:58 Blood Pressure 131/53 02/27/17 13:58 Pulse Oximetry 100 02/27/17 13:58 Medical Decision Making - [facility] Narrative Medical decision making narrative: Labs were discussed in detail with the patient and family and questions are answered. Patient will be admitted to the service of Dr. Baker for observation. Dr. Baker will order steroid therapy. Patient is admitted to the hospital in improved condition. Patient and family are in agreement with the current plan of management. No further orders. - Differential Diagnosis rash, contact dermatitis, eczema, metabolic disorder - Lab Data Result diagrams: 02/27/17 11:01 02/27/17 11:01 Lab Results 02/27/17 02/27/17 Range/Units 11:01 11:01 WBC 9.7 (4.5-11.0) T/MM3 RBC 3.82 L (4.00-5.20) M/MM3 Hgb 10.7 L (12-16) GM/DL Hct 32.7 L (36-46) % MCV 85.6 (80-100) UM3 MCH 28.0 (26-34) UUG MCHC 32.7 (31-37) GM/DL RDW Std Deviation 43.3 (36.9-50.2) FL Plt Count 226 (130-400) T/MM3 MPV 8.3 L (9.4-12.4) UM3 Immature Gran % (Auto) Not performed Neut % (Auto) Not performed Lymph % (Auto) Not performed [place] % (Auto) Not performed Eos % (Auto) Not performed Baso % (Auto) Not performed Neut # (Auto) Not performed Lymph # (Auto) Not performed [place] # (Auto) Not performed Eos # (Auto) Not performed Baso # (Auto) Not performed Abs Immat Gran (auto) Not performed Neutrophils % (Manual) 79.0 H (33-66) % Band Neutrophils % 4.0 (0-6) % Lymphocytes % (Manual) 15.0 L (23-45) % Eosinophils % (Manual) 2.0 (0-4) % Neutrophils # (Manual) 7.7 (1.8-7.7) T/MM3 Band Neutrophils # 0.4 T/MM3 Lymphocytes # (Manual) 1.5 (1-4.8) T/MM3 Eosinophils # (Manual) 0.2 (0-0.5) T/MM3 RBC Morph Comment Normal Turbidity < 20 (0-20) Sodium 126 L (134-144) MEQ/L Potassium 4.3 (3.6-5) MEQ/L Chloride 96 L (98-107) MEQ/L Carbon Dioxide 23 (22-30) MEQ/L Anion Gap 7 (5-15) MEQ/L BUN 15.0 (7-17) MG/DL Creatinine 0.8 (0.7-1.2) MG/DL GFR Calculation 76 BUN/Creatinine Ratio 19 (6-26) RATIO Glucose 101 (65-110) MG/DL Calculated Osmolality 244 L (261-280) MOSM/KG Calcium 8.6 (8.4-10.2) MG/DL Total Bilirubin 0.20 (0.20-1.30) MG/DL Icterus Index < 2 (0-7) AST 22 (14-36) U/L ALT 43 (9-52) U/L Alkaline Phosphatase 36 L (38-126) U/L Total Protein 5.4 L (6.3-8.2) G/DL Albumin 3.2 L (3.5-5.0) G/DL Globulin 2.2 L (2.4-3.6) G/DL Albumin/Globulin Ratio 1.5 (1.1-2.2) RATIO Specimen Hemolysis < 15 (0-25) Disposition Clinical Impression: rash Disposition: 02 To [facility] Condition: Stable Time of Disposition: 12:30 (Admit. Dr. Vergara.) - Seen By: physician
[2017-02-27] MEDS ORDERED: NITROGLYCERIN 0.4 MG SUBLINGUAL TABLET SL PRN (13:05)
[2017-02-27] MEDS ORDERED: ONDANSETRON 4 MG/2 ML INJECTION IVP PRN (14:05)
[2017-02-27 14:11] VITALS: BMI 33.8
--- NOTE | 2017-02-27 14:23 | History & Physical Report ---
History of Present Illness Date: 02/27/17 Chief complaint: rash HPI: 51-year-old patient from [facility] has been having discomfort and itching for 4 days now. The medical provider doesn't have any recent medicine changes that correlate to this, there is no appreciable changes to clothing batting detergents, soaps or significant routine. In the last day and a half a rash was developed over the thighs and torso and its spread essentially everywhere throughout the body sparing the face and scalp above the ears. She has been trying to use hydroxyzine but to no improvement. 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 Absent: chills, fatigue, fever(s), increased appetite, lethargy, malaise, weakness - EENMT Eyes: Absent: blurry vision, change in vision Balance: Absent: vertigo Mouth/Throat: Present: sores. Absent: sore throat - Cardiovascular Cardiovascular: Absent: chest pain, syncope, dyspnea on exertion - Respiratory Respiratory: Absent: cough, dyspnea - Gastrointestinal Gastrointestinal: Absent: abdominal pain, diarrhea - Neurological Neurological: Present: as per HPI. Absent: focal weakness, sensory deficit - Psychiatric Psychiatric: Present: as per HPI PFSH Patient Stated Medical History Seizures Yes Diabetes Mellitus Type 2 Yes Other GI Yes: DIVERTICULITIS Other Yes: FREQUENCY RECENTLY Depression Yes Other Reproductive Yes: AMENORRHEA PER PT Clinic Medical History (Last Reviewed 11/23/16 @ 15:19 by Lucas Helton MD) Diabetes mellitus type 2, controlled (Chronic Medical Unknown) Excellent control of diabetes. Hypothyroidism (Chronic Medical Unknown) Clinically euthyroid. Obesity (BMI 30-39.9) (Chronic Medical) Little worse. 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 Seizure d/o. Anxiety d/o Surgical History: unknown Family History: Pt unable to relate - Social History Smoking status: Never smoker Substance use type: does not use Alcohol intake frequency: does not drink Current residence: [facility] Medications Home Medications Medication Instructions Recorded Confirmed Type Levothyroxine Sodium [Levoxyl] 75 mcg PO ACB #0 09/08/08 02/27/17 History Losartan Potassium [Cozaar] 50 mg PO DAILY #0 09/08/08 02/27/17 History Potassium Chloride [Klor-Con M20] 20 meq PO DAILY #0 09/08/08 02/27/17 History Simvastatin 20 mg PO HS #0 09/08/08 02/27/17 History Pioglitazone HCl [Actos] 15 mg PO QAM #0 03/18/12 02/27/17 History Propranolol HCl 10 mg PO QID #0 03/18/12 02/27/17 History Sucralfate 1 g PO QID #0 01/25/13 02/27/17 History Amlodipine Besylate 5 mg PO DAILY #0 04/19/14 02/27/17 History Sertraline HCl 100 mg PO DAILY #0 04/19/14 02/27/17 History Aspirin [Aspirin EC] 81 mg PO DAILY #0 tab 05/06/15 02/27/17 History Medroxyprogesterone Acetate 1 ml IM 3 MONTHS #1 ml 05/06/15 02/27/17 History RisperiDONE [RisperDAL] 2 mg PO HS #0 05/06/15 02/27/17 History Ziprasidone [Geodon] 60 mg PO BID #0 05/06/15 02/27/17 History Lubiprostone [Amitiza] 24 mcg PO DAILY #0 05/28/15 02/27/17 History Acetaminophen 650 mg PO Q6H PRN 01/27/17 02/27/17 History Acetaminophen [Acetaminophen Extra 1,000 mg PO Q4H PRN 01/27/17 02/27/17 History Strength] Calcium Carbonate [Calcium] 500 - 1,000 mg PO PRN PRN 01/27/17 02/27/17 History Cranberry Fruit Extract/Vit C [Azo 450 - 900 mg PO TID PRN 01/27/17 02/27/17 History Cranberry Softgel] DiphenhydrAMINE [Benadryl] 25 mg PO Q4H PRN 01/27/17 02/27/17 History Docusate Sodium [Colace] 100 mg PO DAILY 01/27/17 02/27/17 History Fenofibric Acid (Choline) 135 mg PO DAILY 01/27/17 02/27/17 History [Fenofibric Acid] HydrOXYzine [Atarax] 25 mg PO TID 01/27/17 02/27/17 History Ibuprofen 400 mg PO Q4H PRN 01/27/17 02/27/17 History Lactase [Lactaid] 3,000 unit PO PRN PRN 01/27/17 02/27/17 History Loperamide [Imodium] 2 mg PO QID PRN 01/27/17 02/27/17 History Magnesium Hydroxide [Milk of 30 ml PO DAILY PRN 01/27/17 02/27/17 History Magnesia] Melatonin 3 mg PO HS 01/27/17 02/27/17 History Metformin [Glucophage] 1,000 mg PO BID 01/27/17 02/27/17 History Multivit,Tx with Iron,Minerals 1 tab PO DAILY 01/27/17 02/27/17 History [Therems-M] Nitroglycerin [Nitrostat] 0.4 mg SL Q5MIN3 PRN 01/27/17 02/27/17 History Omeprazole 40 mg PO DAILY 01/27/17 02/27/17 History Oxybutynin Chloride 5 mg PO BID 01/27/17 02/27/17 History Senna + Docusate [Senna Plus 2 tab PO BID PRN 01/27/17 02/27/17 History Tablet] Chlorpheniramine/Pseudoephed 1 each PO BID PRN 02/27/17 02/27/17 History [Sudogest Cold & Allergy Tab] Guaifenesin Oral Liq [Robitussin 10 ml PO Q4H PRN 02/27/17 02/27/17 History Liq] LORazepam [Ativan] 1 mg PO BID 02/27/17 02/27/17 History LORazepam [Ativan] 1 mg PO PRN PRN 02/27/17 02/27/17 History Simethicone [Mylicon] 80 mg PO BID PRN 02/27/17 02/27/17 History Allergies Allergy/AdvReac Type Severity Reaction Status Date / Time Penicillins Allergy Unknown Verified 02/27/17 10:42 milk AdvReac Unknown LACTOSE Verified 02/27/17 10:42 INTOLERANT Exam Vital Signs: Temperature 97.3 F 02/27/17 10:30 Pulse Rate 92 02/27/17 10:30 Respiratory Rate 20 02/27/17 10:30 Blood Pressure 131/53 02/27/17 10:30 Pulse Oximetry 100 02/27/17 10:30 Height/Weight/BMI: Height 4 ft 9 in Weight 71 kg Body Mass Index 33.8 Comments: Short stature and typical shield like chest indicative of diagnosis - Constitutional Present: no acute distress, well nourished, cooperative - Routine HEENT Exam Eye: Present: EOMI ENT: Present: mucous membranes moist, dentition normal - Routine Respiratory Exam Present: CTA bilaterally. Absent: wheezes - Routine Cardiovascular Exam Present: RRR. Absent: murmur - Routine Abdominal Exam Present: soft, normoactive bowel sounds, non distended. Absent: tenderness - Routine Extremities Exam Present: normal capillary refill - Routine Skin Exam Present: dry, warm - Routine Neurological Exam Present: alert, oriented X3, CN II-XII intact Cognitively slow but answers appropriately with limited information. 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 Current visit: No Status: Chronic (5) Hypothyroidism Problem details: Clinically euthyroid. Current visit: No Status: Chronic Assessment and Plan: 51-year-old patient with mental retardation and seizure disorder that has body wide urticaria rash of unknown origin. She has significant excoriation due to the pruritus but as of yet nothing appears in fact. Was initially called to the emergency room for concerned that this was Costa-Gregg syndrome. The pattern of rash does not correlate to this. There is a single mouth lesion on the inside of the lower lip. This appears to be an actress ulcer or some other etiology, essentially non sequitur to the situation. Patient is on 41 medications but only the thyroid and seizure medications appear to be immediately necessary at this point those will be continued and the rest will be held. It is unlikely that this is due to the medications she's been on most of them for extended periods many of them for many years. 125 mg Solu-Medrol given Q8 hours for total for doses Continue antiepileptic medicines, levothyroxine. Will monitor diabetes for hyperglycemic spike due to steroids. DISPOSITION: observation status for 24 hours DVT Prophylaxis: SCD's Resuscitation Status: Full Code Hospital Course Summary Disclaimer: The visit summary below is not to be considered part of the above Progress Note.
[2017-02-27] MEDS: METHYLPREDNISOLONE SOD SUCC 125mg/2ml INJECTION IVP SCH ×2 (16:13→18:17)
[2017-02-27] MEDS: SALINE FLUSH 10ml SYRINGE IV PRN ×3 (16:53→21:00)
[2017-02-27] MEDS: OXCARBAZEPINE 300 MG TABLET PO SCH (20:59)
[2017-02-27] MEDS: ZIPRASIDONE 60 MG CAPSULE PO SCH (20:59)
[2017-02-28] MEDS: METHYLPREDNISOLONE SOD SUCC 125mg/2ml INJECTION IVP SCH ×2 (00:56→08:13)
[2017-02-28] MEDS: DiphenhydrAMINE 25 MG CAPSULE PO PRN ×2 (03:38→20:29)
[2017-02-28] MEDS: SALINE FLUSH 10ml SYRINGE IV PRN ×2 (08:12→20:29)
[2017-02-28] MEDS: OXCARBAZEPINE 300 MG TABLET PO SCH ×2 (08:16→20:27)
[2017-02-28] MEDS: ZIPRASIDONE 60 MG CAPSULE PO SCH ×2 (08:16→20:27)
--- NOTE | 2017-02-28 13:21 | Progress Note ---
<Elise Arellano - Last Filed: 02/28/17 18:56> - Date 02/28/17 Subjective: Patient is seen today lying in bed. She states that she has not had any improvement in her rash or itching. She asks if she can go home. She states she is "shaky" from drinking coffee this morning. She has no pain. No fever. Objective Vital signs: Temperature 96.6 F L 02/28/17 07:25 Pulse Rate 101 H 02/28/17 07:25 Respiratory Rate 18 02/28/17 07:25 Blood Pressure 148/83 H 02/28/17 07:25 Pulse Oximetry 99 02/28/17 07:25 Height/Weight/BMI: Height 1.45 m Weight 71.5 kg Body Mass Index 33.8 - Constitutional Present: no acute distress, well nourished, well developed, obese - Routine HEENT Exam Head: Present: normocephalic, atraumatic Comments: "canker" sore inside of L lower lip - Routine Respiratory Exam Present: CTA bilaterally. Absent: wheezes - Routine Cardiovascular Exam Present: RRR, S1, S2. Absent: murmur - Routine Abdominal Exam Present: soft, normoactive bowel sounds, non distended. Absent: tenderness - Routine Extremities Exam Present: no edema, normal capillary refill - Routine Skin Exam Present: dry, warm, rash (diffuse. Confluent over the upper thighs. Her chest and and upper abdomen and face are areas with least involvement. Rash is papular, red, with excoriation and bleeding sandro over the upper legs. Warmth noted in worst areas on the upper thighs. ) - Routine Neurological Exam Present: alert, oriented X3 - Routine Lymphatic Exam Lymphatic: Absent: adenopathy - Routine Psychiatric Exam Present: normal affect, cooperative Results - Labs CBC & Chem 7: 02/28/17 13:49 02/28/17 13:49 Assessment and Plan (1) Hypothyroidism Problem details: Clinically euthyroid. Current visit: No Status: Chronic (2) Diabetes mellitus type 2, controlled Problem details: Excellent control of diabetes. 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 1cc of lido w/o epi infiltrated for local block. 2mm punch bx obtained and sent for path. Bleeding was minimal. Silver nitrate stick used for cautery. No complications. Bx site covered with gauze and tape. Pt tolerated well. Assessment Diffuse rash - med reaction vs vasculitis vs other... Godwin syndrome with mosaicism Recurrent seizures Diabetes mellitus type 2, controlled Hypothyroidism Plan --Spoke with Nick Llamas M.D. (cycling instructor) and showed him pictures of patient's rash. He recommends biopsy and coagulation studies. Punch bx performed. PTT, INR ordered. Also repeat CBC and CMP today. Differential could include leukocytoclastic vasculitis, but would expect to see blood in her urine with this and improvement after the Solu-Medrol. He suspicions this is probably medication related. He does not think it is Costa-Gregg syndrome. --Also spoke with Dr. Awilda Boudreaux (infectious disease). She does not think it is RMSF. She does recommend rechecking an RPR which was ordered. Hospital Course Summary Disclaimer: The visit summary below is not to be considered part of the above Progress Note. Hospital Course: Assessment Diffuse rash - med reaction vs vasculitis vs other... Godwin syndrome with mosaicism Recurrent seizures Diabetes mellitus type 2, controlled Hypothyroidism 02/27/17 51-year-old patient with mental retardation and seizure disorder that has body wide urticaria rash of unknown origin. She has significant excoriation due to the pruritus but as of yet nothing appears in fact. Was initially called to the emergency room for concerned that this was Costa-Gregg syndrome. The pattern of rash does not correlate to this. There is a single mouth lesion on the inside of the lower lip. This appears to be an actress ulcer or some other etiology, essentially non sequitur to the situation. Patient is on 41 medications but only the thyroid and seizure medications appear to be immediately necessary at this point those will be continued and the rest will be held. It is unlikely that this is due to the medications she's been on most of them for extended periods many of them for many years. 125 mg Solu-Medrol given Q8 hours for total for doses Continue antiepileptic medicines, levothyroxine. Will monitor diabetes for hyperglycemic spike due to steroids. 02/28/17 --Spoke with Nick Llamas M.D. (cycling instructor) and showed him pictures of patient's rash. He recommends biopsy and coagulation studies. Punch bx performed and sent to path. PTT, INR ordered. Also repeat CBC and CMP today. Differential could include leukocytoclastic vasculitis, but would expect to see blood in her urine with this and improvement after the Solu-Medrol. He suspicions this is probably medication related. He does not think it is Costa- Gregg syndrome. --Also spoke with Dr. Awilda Bouderaux (infectious disease). She does not think it is RMSF. She does recommend rechecking an RPR which was ordered <Brayan Vergara - Last Filed: 02/28/17 20:19> - Date 02/28/17 Objective Vital signs: Temperature 96.6 F L 02/28/17 16:00 Pulse Rate 106 H 02/28/17 16:00 Respiratory Rate 16 02/28/17 16:00 Blood Pressure 148/80 H 02/28/17 16:00 Pulse Oximetry 100 02/28/17 16:00 Height/Weight/BMI: Height 4 ft 9 in Weight 71.5 kg Body Mass Index 33.8 Results - Labs CBC & Chem 7: 02/28/17 13:49 02/28/17 13:49 Assessment and Plan (1) Hypothyroidism Problem details: Clinically euthyroid. Current visit: No Status: Chronic (2) Diabetes mellitus type 2, controlled Problem details: Excellent control of diabetes. 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 Agree with history, physical, assessment and plan. Comprehensive physical findings correlate to the above note. Patient's diffuse petechial variform rash is unimproved and she still complains of itching. The aPPT being too high to calculate is indicative of an intrinsic pathway coagulopathy. Still believe this is secondary to drug reaction but we're down to only 2 medications that she has been on continuously and that is the Geodon and the Lamictal. I'm not against changing them that this is required, perhaps a hard switch to Keppra will be required but I would like to discuss the implications of coagulopathy with hematology before any further changes. The Godwin mosaicism creating a 45Xo condition makes X-linked deficiencies into homogenous dominant problems and thus grounds for special consideration. Documented on Dragon speech to text. Efforts to correct speech recognition errors performed, but variation may exist Hospital Course Summary Disclaimer: The visit summary below is not to be considered part of the above Progress Note.
[2017-02-28] MEDS ORDERED: LIDOCAINE 1% (10mg/ml) 2mL INJ PF SDV ID ONE (13:56)
[2017-02-28] MEDS ORDERED: SILVER NITRATE APPLICATOR TOP PRN (14:48)
[2017-02-28] MEDS: ZOLPIDEM 5 MG TABLET PO SCH (22:59)
[2017-03-01] MEDS: DiphenhydrAMINE 25 MG CAPSULE PO PRN ×2 (02:00→20:05)
--- NOTE | 2017-03-01 09:10 | Wound Care Progress Note ---
Wound Center Progress Note: Asked to see pt and give suggestions for a rash full body, which on observation is from head to toe raised, raised bulbous and per the patient very "itchy". Discussed with attending possibilities for treatment. Suggested benadryl ointments.
[2017-03-01] MEDS: LEVETIRACETAM 500 MG/5 ML ORAL LIQUID PO SCH ×2 (11:01→20:51)
[2017-03-01] MEDS: METHYLPREDNISOLONE SOD SUCC 40mg/ml INJECTION IVP SCH ×2 (11:04→17:28)
[2017-03-01] MEDS: SALINE FLUSH 10ml SYRINGE IV PRN ×2 (11:05→17:28)
--- NOTE | 2017-03-01 14:59 | Progress Note ---
<Elise Arellano - Last Filed: 03/01/17 14:56> - Date 03/01/17 Subjective: Patient seen sitting in bed. She hasn't noted any improvement in sxs. Still c/ o itch and wants to go home. Has noted a bit of oozing on the legs from the rash likely b/c she just got out of the shower. Objective Vital signs: Temperature 99.5 F 03/01/17 07:40 Pulse Rate 110 H 03/01/17 07:40 Respiratory Rate 22 03/01/17 07:40 Blood Pressure 152/80 H 03/01/17 07:40 Pulse Oximetry 97 03/01/17 07:40 Height/Weight/BMI: Weight 70.8 kg - Constitutional Present: no acute distress, well nourished, well developed - Routine HEENT Exam ENT: Present: dentition normal - Routine Respiratory Exam Present: CTA bilaterally. Absent: wheezes - Routine Cardiovascular Exam Present: RRR, S1, S2. Absent: murmur - Routine Abdominal Exam Present: soft, normoactive bowel sounds, non distended. Absent: tenderness - Routine Extremities Exam Present: no edema, normal capillary refill - Routine Skin Exam Present: dry, warm, rash (continues to have diffuse, pink/red, papular rash to most of body - sparing soles of feet and scalp. Most confluent and marked on her thighs. Punch bx area on her upper back w/o sign of infection. Rash involves fingers and palms. Overall, rash doesn't appear to be any worse than yesterday.) - Routine Neurological Exam Present: alert, oriented X3, tremors - Routine Lymphatic Exam Lymphatic: Absent: adenopathy - Routine Psychiatric Exam Present: normal affect, cooperative Results - Labs CBC & Chem 7: 02/28/17 13:49 02/28/17 13:49 Labs: punch bx is pending Laboratory Tests 02/28/17 02/28/17 13:49 13:49 INR 1.07 APTT > 200.0 H* RPR Non-reactive Assessment and Plan (1) Hypothyroidism Problem details: Clinically euthyroid. Current visit: No Status: Chronic (2) Diabetes mellitus type 2, controlled Problem details: Excellent control of diabetes. Current visit: No Status: Chronic (3) Recurrent seizures Current visit: Yes Status: Chronic (4) Godwni syndrome with mosaicism Current visit: Yes Status: Chronic (5) Urticaria of entire body Current visit: Yes Status: Acute Assessment and Plan: Assessment Coagulopathy - elevated aPTT Diffuse rash - med reaction vs vasculitis vs other... Godwin syndrome with mosaicism Recurrent seizures Diabetes mellitus type 2, controlled Hypothyroidism Plan Dr Vergara discussed case with Dr. Pearce and Dr. Casas. Dr. Pearce will see patient today for consultation re: the elevated aPTT. Dr. Casas recommends DC Trileptal and start Keppra 500mg BID as Trileptal could be the cause. DC Geodon as it could be cause for reaction as well. Continue methylprednisolone at 40mg IV q 8 hrs and PRN Benadryl. Hospital Course Summary Disclaimer: The visit summary below is not to be considered part of the above Progress Note. Hospital Course: Assessment Coagulopathy - elevated aPTT Diffuse rash - med reaction vs vasculitis vs other... Godwin syndrome with mosaicism Recurrent seizures Diabetes mellitus type 2, controlled Hypothyroidism 02/27/17 51-year-old patient with mental retardation and seizure disorder that has body wide urticaria rash of unknown origin. She has significant excoriation due to the pruritus but as of yet nothing appears in fact. Was initially called to the emergency room for concerned that this was Costa-Gregg syndrome. The pattern of rash does not correlate to this. There is a single mouth lesion on the inside of the lower lip. This appears to be an actress ulcer or some other etiology, essentially non sequitur to the situation. Patient is on 41 medications but only the thyroid and seizure medications appear to be immediately necessary at this point those will be continued and the rest will be held. It is unlikely that this is due to the medications she's been on most of them for extended periods many of them for many years. 125 mg Solu-Medrol given Q8 hours for total for doses Continue antiepileptic medicines, levothyroxine. Will monitor diabetes for hyperglycemic spike due to steroids. 02/28/17 --Spoke with Nick Llamas M.D. (pricing director) and showed him pictures of patient's rash. He recommends biopsy and coagulation studies. Punch bx performed and sent to path. PTT, INR ordered. Also repeat CBC and CMP today. Differential could include leukocytoclastic vasculitis, but would expect to see blood in her urine with this and improvement after the Solu-Medrol. He suspicions this is probably medication related. He does not think it is Costa- Gregg syndrome. --Also spoke with Dr. Awilda Boudreaux (infectious disease). She does not think it is RMSF. She does recommend rechecking an RPR which was ordered 03/01/17 Dr Vergara discussed case with Dr. Pearce and Dr. Casas. Dr. Pearce will see patient today for consultation re: the elevated aPTT. Dr. Casas recommends DC Trileptal and start Keppra 500mg BID as Trileptal could be the cause. DC Geodon as it could be cause for reaction as well. Continue methylprednisolone at 40mg IV q 8 hrs and PRN Benadryl. <Brayan Vergara - Last Filed: 03/01/17 22:35> - Date 03/01/17 Objective Vital signs: Temperature 97.2 F 03/01/17 15:00 Pulse Rate 101 H 03/01/17 15:00 Respiratory Rate 20 03/01/17 15:00 Blood Pressure 146/90 H 03/01/17 15:00 Pulse Oximetry 98 03/01/17 15:00 Height/Weight/BMI: Weight 70.8 kg Results - Labs CBC & Chem 7: 02/28/17 13:49 02/28/17 13:49 Assessment and Plan (1) Hypothyroidism Problem details: Clinically euthyroid. Current visit: No Status: Chronic (2) Diabetes mellitus type 2, controlled Problem details: Excellent control of diabetes. 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 Agree with history, physical, assessment and plan. Comprehensive physical findings correlate to the above note. Appreciation to Elise Arellano for all her efforts in clinical care and documentation. Patient is now been discontinued from all 41 of her prior medications. Keppra 500 mg BID should be sufficient for initial prophylaxis but may be tapered up by need. Documented on Dragon speech to text. Efforts to correct speech recognition errors performed, but variation may exist Hospital Course Summary Disclaimer: The visit summary below is not to be considered part of the above Progress Note.
[2017-03-01 15:23] VITALS: RESP 20
[2017-03-01] MEDS ORDERED: ZOLPIDEM 5 MG TABLET PO SCH (21:00)
[2017-03-01] MEDS: ZOLPIDEM 5 MG TABLET PO SCH (22:11)
[2017-03-01 23:26] VITALS: O2SAT 94
[2017-03-02] MEDS: SALINE FLUSH 10ml SYRINGE IV PRN ×2 (01:26→08:48)
[2017-03-02] MEDS: METHYLPREDNISOLONE SOD SUCC 40mg/ml INJECTION IVP SCH ×2 (01:26→08:48)
[2017-03-02] MEDS: DiphenhydrAMINE 25 MG CAPSULE PO PRN ×2 (01:56→08:56)
[2017-03-02 07:36] VITALS: BP 143/99; PULSE 90
--- NOTE | 2017-03-02 07:42 | Consultation ---
DATE OF CONSULTATION 03/01/2017 REASON FOR CONSULTATION Prolonged PTT. HISTORY OF PRESENT ILLNESS This is a 51-year-old female patient with history of Godwin syndrome, seizure, diabetes mellitus on multiple medications, almost more than 40 different drugs. She presented with generalized maculopapular rash. Most of her medications are on hold and started on steroid. However, the rash is still persistent. She was noted to have a PTT of more than 200 and INR of 1.07. PTT back in 2011 was prolonged at 40. The patient is not known to have blood clots. PAST MEDICAL HISTORY 1. Type 2 diabetes mellitus. 2. Godwin syndrome. 3. History of seizure. MEDICATIONS 1. Keppra. 2. Benadryl. 3. Solu-Medrol. 4. Nitrostat. 5. Zofran. The rest of home medication on hold. ALLERGIES Penicillin and milk. REVIEW OF SYSTEMS GENERAL: No fever. RESPIRATORY: No shortness of breath. No cough. CARDIOVASCULAR: No chest pain. GI: No nausea. No vomiting. No blood in the stool. VARITYPIST: History of seizure. : No urinary symptoms. SKIN: She has generalized skin rash. LAB CBC: White count 9.7, hemoglobin 10.7, platelets 226. INR 1.07, PTT more than 200. PHYSICAL EXAM VITAL SIGNS: Stable. LUNGS: Clear to auscultation. CARDIOVASCULAR: Normal sinus rhythm. ABDOMEN: Benign. No organomegaly. No masses. EXTREMITIES: No edema. VARITYPIST: No focal neurological deficit. SKIN: She has a maculopapular generalized rash. ASSESSMENT 1. Prolonged PTT of more than 200 with no history of bleeding or thrombosis. Differential diagnoses include lab error versus factor deficiency, especially Factor VIII inhibitor and antiphospholipid syndrome. 2. Godwin syndrome with seizure and diabetes mellitus on multiple medications. 3. Maculopapular skin rash most likely drug rash. RECOMMENDATION AND PLAN 1. Would repeat PTT and if it is still prolonged I would order mixing study and antiphospholipid antibodies as well as lupus anticoagulant. MTDD
[2017-03-02 08:05] VITALS: TEMP 96
[2017-03-02] MEDS: LEVETIRACETAM 500 MG/5 ML ORAL LIQUID PO SCH (08:48)
--- NOTE | 2017-03-02 14:24 | Discharge Summary ---
Discharge Information Date of admission: 02/28/17 20:19 Anticipated date of discharge: 03/02/17 Attending Physician: Brayan Vergara MD Primary care physician: Kaya Bolden MD Consults: 03/01/17 08:03 [facility] Consult [CONS] Routine Reason for consultation: rash over entire body weepy and very red suggestions ? - Discharge Diagnosis (1) Hypothyroidism Status: Chronic (2) Diabetes mellitus type 2, controlled Status: Chronic (3) Recurrent seizures Status: Chronic (4) Godwin syndrome with mosaicism Status: Chronic (5) Urticaria of entire body Status: Acute See above - Laboratory Labs: 03/02/17 04:54 03/02/17 04:54 History of Present Illness HPI: 51-year-old patient from [facility] has been having discomfort and itching for 4 days now. The medical provider doesn't have any recent medicine changes that correlate to this, there is no appreciable changes to clothing batting detergents, soaps or significant routine. In the last day and a half a rash was developed over the thighs and torso and its spread essentially everywhere throughout the body sparing the face and scalp above the ears. She has been trying to use hydroxyzine but to no improvement. Patient has Godwin syndrome mosaic and associated moderate mental retardation with us Objective Vital signs: Temperature 96.0 F L 03/02/17 07:00 Pulse Rate 90 03/02/17 07:00 Respiratory Rate 20 03/02/17 07:00 Blood Pressure 143/99 H 03/02/17 07:00 Pulse Oximetry 94 03/01/17 23:00 Height/Weight/BMI: Weight 70.5 kg - Constitutional Present: no acute distress, well nourished. Absent: well developed - Routine HEENT Exam Head: Present: normocephalic, atraumatic Eye: Present: EOMI ENT: Present: mucous membranes moist, dentition normal - Routine Respiratory Exam Present: CTA bilaterally. Absent: wheezes - Routine Cardiovascular Exam Present: RRR. Absent: murmur - Routine Abdominal Exam Present: soft, normoactive bowel sounds, non distended. Absent: tenderness - Routine Extremities Exam Present: normal capillary refill - Routine Skin Exam Present: dry, urticaria, warm, rash. Absent: intact Comments: Tie Siding's only now beginning to show some resolution of the smaller later regions of flat purple papules - Routine Neurological Exam Present: alert, oriented X3, CN II-XII intact - Routine Lymphatic Exam Lymphatic: Absent: adenopathy - Routine Psychiatric Exam Present: cooperative. Absent: normal affect, normal thought process, good insight Hospital Course This is a general summary of the patient's hospital course. For more details refer to the complete medical record. Hospital course: Assessment Coagulopathy - elevated aPTT Diffuse rash - med reaction vs vasculitis vs other... Godwin syndrome with mosaicism Recurrent seizures Diabetes mellitus type 2, controlled Hypothyroidism 02/27/17 51-year-old patient with mental retardation and seizure disorder that has body wide urticaria rash of unknown origin. She has significant excoriation due to the pruritus but as of yet nothing appears in fact. Was initially called to the emergency room for concerned that this was Costa-Gregg syndrome. The pattern of rash does not correlate to this. There is a single mouth lesion on the inside of the lower lip. This appears to be an actress ulcer or some other etiology, essentially non sequitur to the situation. Patient is on 41 medications but only the thyroid and seizure medications appear to be immediately necessary at this point those will be continued and the rest will be held. It is unlikely that this is due to the medications she's been on most of them for extended periods many of them for many years. 125 mg Solu-Medrol given Q8 hours for total for doses Continue antiepileptic medicines, levothyroxine. Will monitor diabetes for hyperglycemic spike due to steroids. 02/28/17 --Spoke with Nick Llamas M.D. (case preparer and liner) and showed him pictures of patient's rash. He recommends biopsy and coagulation studies. Punch bx performed and sent to path. PTT, INR ordered. Also repeat CBC and CMP today. Differential could include leukocytoclastic vasculitis, but would expect to see blood in her urine with this and improvement after the Solu-Medrol. He suspicions this is probably medication related. He does not think it is Costa- Gregg syndrome. --Also spoke with Dr. Awilda Boudreaux (infectious disease). She does not think it is RMSF. She does recommend rechecking an RPR which was ordered 03/01/17 Dr Vergara discussed case with Dr. Pearce and Dr. Casas. Dr. Pearce will see patient today for consultation re: the elevated aPTT. Dr. Casas recommends DC Trileptal and start Keppra 500mg BID as Trileptal could be the cause. DC Geodon as it could be cause for reaction as well. Continue methylprednisolone at 40mg IV q 8 hrs and PRN Benadryl. 03/02/2017 Patient discharged with discontinuance of all prior medications. Such polypharmacy needs discontinued and only judicious resumption of a fraction of these medications should be performed slowly, one at a time. Only Keppra and PRN nitroglycerin at this time Time spent with patient: discharge greater than 30 minutes Discharge Plan - Discharge Disposition Discharge Date: 03/02/17 Disposition: 01 Discharged Home,Parent Care *Condition: Stable *Reason For Visit: Symptomatic coagulopathy, poss drug reaction - Discharge Medications *Discharge Medications: New Levetiracetam [Keppra] 1 tab PO BID #60 tab Continue Levothyroxine Sodium [Levoxyl] 75 mcg PO ACB #0 Ibuprofen 400 mg PO Q4H PRN PRN Reason: Pain Cranberry Fruit Extract/Vit C [Azo Cranberry Softgel] 450 - 900 mg PO TID PRN PRN Reason: Urinary Pain Nitroglycerin [Nitrostat] 0.4 mg SL Q5MIN3 PRN PRN Reason: Chest Pain LORazepam [Ativan] 1 mg PO PRN PRN PRN Reason: Anxiety Acetaminophen 650 mg PO Q6H PRN PRN Reason: Pain Discontinued Losartan Potassium [Cozaar] 50 mg PO DAILY #0 Simvastatin 20 mg PO HS #0 Pioglitazone HCl [Actos] 15 mg PO QAM #0 Amlodipine Besylate 5 mg PO DAILY #0 RisperiDONE [RisperDAL] 2 mg PO HS #0 Aspirin [Aspirin EC] 81 mg PO DAILY #0 tab Multivit,Tx with Iron,Minerals [Therems-M] 1 tab PO DAILY Oxybutynin Chloride 5 mg PO BID Omeprazole 40 mg PO DAILY Lactase [Lactaid] 3,000 unit PO PRN PRN PRN Reason: Prn Orders HydrOXYzine [Atarax] 25 mg PO TID Melatonin 3 mg PO HS DiphenhydrAMINE [Benadryl] 25 mg PO Q4H PRN PRN Reason: Prn Orders Loperamide [Imodium] 2 mg PO QID PRN PRN Reason: Diarrhea Docusate Sodium [Colace] 100 mg PO DAILY Magnesium Hydroxide [Milk of Magnesia] 30 ml PO DAILY PRN PRN Reason: Constipation OXcarbazepine [Trileptal] 300 mg PO BID #60 tab Simethicone [Mylicon] 80 mg PO BID PRN PRN Reason: Prn Orders LORazepam [Ativan] 1 mg PO BID Potassium Chloride [Klor-Con M20] 20 meq PO DAILY #0 Propranolol HCl 10 mg PO QID #0 Sucralfate 1 g PO QID #0 Sertraline HCl 100 mg PO DAILY #0 Ziprasidone [Geodon] 60 mg PO BID #0 Medroxyprogesterone Acetate 1 ml IM 3 MONTHS #1 ml Lubiprostone [Amitiza] 24 mcg PO DAILY #0 Metformin [Glucophage] 1,000 mg PO BID Senna + Docusate [Senna Plus Tablet] 2 tab PO BID PRN PRN Reason: Constipation Calcium Carbonate [Calcium] 500 - 1,000 mg PO PRN PRN PRN Reason: Heartburn Fenofibric Acid (Choline) [Fenofibric Acid] 135 mg PO DAILY Chlorpheniramine/Pseudoephed [Sudogest Cold & Allergy Tab] 1 each PO BID PRN PRN Reason: Nasal Congestion Guaifenesin Oral Liq [Robitussin Liq] 10 ml PO Q4H PRN PRN Reason: Cough No Action Acetaminophen [Acetaminophen Extra Strength] 1,000 mg PO Q4H PRN PRN Reason: Pain - Discharge Packet/Instructions *Diet: Diabetic *Activity: as tolerated prior *Pain Management/Treatment: OTC meds *Wound Care: topical care as needed for excoriation *Expected Signs/Symptoms: rash *Notify Physician if: Rash returns *During Business Hours Contact: Primary care physician *After Business Hours Contact: Emergency *Pending Lab/Results: No Pending Lab - Referrals/Follow Up *Referrals/Follow Up: OTHER, [Physician Nonstaff] - - Patient Handouts Patient Handouts: Acute Rash (GEN) - Dismissal Complete Discharge Instructions are:: Complete
== END 2017-03-02 15:25 | disposition home or self-care (01) | DRG 607 ==
LOC: MED 10:25 → ED 10:25 → MED 14:00
PROVIDERS: ADMIT Family Medicine; ATTEND Family Medicine

== ENCOUNTER 2017-03-24 05:37 | Inpatient (IN) ==
[2017-03-24] MEDS ORDERED: ASENAPINE 5 MG SUBLINGUAL TABLET SL ONE (06:42)
[2017-03-24] MEDS ORDERED: FUROSEMIDE 20 MG/2 ML INJECTION IVP ONE (07:16)
[2017-03-24] MEDS ORDERED: NS 1,000 ML IV SCH (07:30)
--- NOTE | 2017-03-24 07:37 | Emergency Department Report ---
General Adult HPI - General Chief complaint: Psychiatric Symptoms Stated complaint: Change in mental status Time Seen by Provider: 03/24/17 06:17 - History of Present Illness HPI narrative: 51-year-old female who resides at [facility]. Has had worsening mental status and aggression over the last 2 days. She's refused to take her medications. She has become very aggressive with staff and very confused. 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 - Related Data Home Medications Medication Instructions Recorded Confirmed Levothyroxine Sodium [Levoxyl] 75 mcg PO ACB #0 09/08/08 03/24/17 Advil (Ibuprofen) 200 mg tablet 400 mg PO Q4H PRN tab 03/13/17 03/24/17 Ativan (lorazepam) 1 mg tablet 1 mg PO BID 03/13/17 03/24/17 Colace (Docusate sodium) 100 mg 100 mg PO BID 03/13/17 03/24/17 capsule Glucophage (metformin) 1,000 mg 1,000 mg PO BID 03/13/17 03/24/17 tablet Mapap Extra Strength 500 mg tablet 1,000 mg PO Q4H PRN tab 03/13/17 03/24/17 Nitrostat (nitroglycerin) 0.4 mg 0.4 mg SL Q5M PRN 03/13/17 03/24/17 sublingual tablet Zoloft (sertraline) 100 mg tablet 100 mg PO Q24H 03/13/17 03/24/17 propranolol 10 mg tablet 10 mg PO QID tab 03/13/17 03/24/17 Actos (pioglitazone) 15 mg tablet 15 mg PO DAILY tab 03/21/17 03/24/17 K-Tab (potassium chloride ER) 20 20 meq PO DAILY tab 03/21/17 03/24/17 mEq tablet Norvasc (amlodipine) 5 mg tablet 5 mg PO DAILY tab 03/21/17 03/24/17 Zocor (simvastatin) 20 mg tablet 20 mg PO QAM 03/21/17 03/24/17 aspirin 81 mg tablet,delayed 81 mg PO DAILY tab 03/21/17 03/24/17 release lubiprostone 24 mcg capsule 24 mcg PO QAM cap 03/21/17 03/24/17 oxybutynin chloride 5 mg tablet 5 mg PO DAILY tab 03/21/17 03/24/17 ClonazePAM [Klonopin] 1 tab PO BID PRN 03/24/17 03/24/17 Losartan [Cozaar] 50 mg PO DAILY 03/24/17 03/24/17 Previous Rx's Medication Instructions Recorded Keppra (levetiracetam) 500 mg 500 mg PO BID #60 tab 03/13/17 tablet Allergies Allergy/AdvReac Type Severity Reaction Status Date / Time Penicillins Allergy Unknown Verified 03/21/17 09:59 milk AdvReac Unknown LACTOSE Verified 03/21/17 09:59 INTOLERANT Review of Systems All systems: reviewed and negative except as stated PFSH Patient Stated Medical History Seizures Yes Diabetes Mellitus Type 2 Yes Other GI Yes: DIVERTICULITIS Other Yes: FREQUENCY AFTER MED WAS DC'D Depression Yes Other Reproductive Yes: AMENORRHEA PER PT Clinic Medical History (Last Reviewed 03/21/17 @ 10:13 by Lucas Helton MD) Recurrent seizures (Chronic Medical) HTN (hypertension) (Acute Medical) Good control. Urticaria of entire body (Acute Medical) Diabetes mellitus type 2, controlled (Chronic Medical Unknown) Excellent control of diabetes. Anxiety (Chronic Medical) Depression (Chronic Medical) HTN (hypertension) (Chronic Medical) Seizure (Chronic Medical) Erythema multiforme (Inactive Medical) Hypothyroidism (Inactive Medical Unknown) Clinically euthyroid. Obesity (BMI 30-39.9) (Inactive Medical) Little worse. Seizure (Inactive Medical) Godwin syndrome with mosaicism (Inactive Medical) Vasovagal syncope (Inactive Medical) Medical History Updates: MR. Slaughter D/o Surgical History: 2 c sections - Social History Smoking status: Never smoker Substance use type: does not use Physical Exam - Limitations Limitations: altered mental status - General General appearance: anxious - Normal Exams: Head:: Normocephalic without trauma Chest/Respirations:: Clear all merritt, with good airflow, and symmetry bilaterally Cardiovascular:: Regular rate and rhythm, without murmur or gallop, Pulses 2+ all extremities, capillary refill, <2 seconds all extremities Abdomen:: Bowel sounds positive, soft, non-tender, non-distended, no hepatosplenomegaly, masses or bruits noted - Psychiatric Psychiatric exam: Present: agitated, anxious, other (aggressive) Course Vital Signs Temperature 97.8 F 03/24/17 05:39 Pulse Rate 95 03/24/17 05:39 Respiratory Rate 16 03/24/17 05:39 Blood Pressure 176/95 H 03/24/17 05:39 Pulse Oximetry 98 03/24/17 05:39 Temperature 97.8 F 03/24/17 05:39 Pulse Rate 95 03/24/17 05:39 Respiratory Rate 16 03/24/17 05:39 Blood Pressure 176/95 H 03/24/17 05:39 Pulse Oximetry 98 03/24/17 05:39 Medical Decision Making - [facility] Narrative Medical decision making narrative: Patient was given Saphris 10 mg sublingual. Her aggression did improve slightly with this. However she was still quite unhappy. Labs returned showing normal urine except for significant dilution. Sodium 119 with her chronic sodium running 140s. Creatinine 0.6 BUN was also low. Patient has obvious fluid overload with hyponatremia. I started her on 0.9% normal saline with 20 mg Lasix IV. Hospitalist was consult it and accepted patient. She will be transferred to ICU for closer care. I spent greater than 35 minutes in critical care this patient. - Lab Data Result diagrams: 03/24/17 06:24 03/24/17 06:24 Lab Results 03/24/17 03/24/17 03/24/17 Range/Units 06:24 06:24 06:34 WBC 9.1 (4.5-11.0) T/MM3 RBC 3.83 L (4.00-5.20) M/MM3 Hgb 10.9 L (12-16) GM/DL Hct 32.1 L (36-46) % MCV 83.8 (80-100) UM3 MCH 28.5 (26-34) UUG MCHC 34.0 (31-37) GM/DL RDW Std Deviation 40.6 (36.9-50.2) FL Plt Count 307 (130-400) T/MM3 MPV 8.8 L (9.4-12.4) UM3 Immature Gran % (Auto) 0.2 (0.0-0.5) % Neut % (Auto) 62.4 (33-66) % Lymph % (Auto) 21.9 L (23-45) % [place] % (Auto) 11.9 H (0-9.0) % Eos % (Auto) 3.5 (0-4) % Baso % (Auto) 0.1 (0-2) % Neut # (Auto) 5.7 (1.8-7.7) T/MM3 Lymph # (Auto) 2.0 (1-4.8) T/MM3 [place] # (Auto) 1.1 H (0-0.8) T/MM3 Eos # (Auto) 0.3 (0-0.5) T/MM3 Baso # (Auto) 0.0 (0-0.2) T/MM3 Abs Immat Gran (auto) 0.02 (0.00-0.03) T/MM3 Turbidity < 20 (0-20) Sodium 119 L* (134-144) MEQ/L Potassium 3.6 (3.6-5) MEQ/L Chloride 87 L (98-107) MEQ/L Carbon Dioxide 21 L (22-30) MEQ/L Anion Gap 11 (5-15) MEQ/L BUN 6.0 L (7-17) MG/DL Creatinine 0.5 L (0.7-1.2) MG/DL GFR Calculation 130 BUN/Creatinine Ratio 12 (6-26) RATIO Glucose 109 (65-110) MG/DL Calculated Osmolality 229 L (261-280) MOSM/KG Calcium 9.2 (8.4-10.2) MG/DL Total Bilirubin 0.90 (0.20-1.30) MG/DL Icterus Index < 2 (0-7) AST 34 (14-36) U/L ALT 58 H (9-52) U/L Alkaline Phosphatase 103 (38-126) U/L Total Protein 6.6 (6.3-8.2) G/DL Albumin 4.3 (3.5-5.0) G/DL Globulin 2.3 L (2.4-3.6) G/DL Albumin/Globulin Ratio 1.9 (1.1-2.2) RATIO TSH 1.20 (0.47-4.68) MIU/L Specimen Hemolysis < 15 (0-25) Ur Collection Type Urine, lyons Urine Color Yellow (YELLOW) Urine Clarity Clear Urine pH 5.5 (5.0-8.0) Ur Specific [place] <=1.005 L (1.015-1.025) Urine Protein Negative (NEGATIVE) Urine Glucose (UA) Negative (NEGATIVE) Urine Ketones Negative (NEGATIVE) Urine Occult Blood Negative (NEGATIVE) Urine Nitrate Negative (NEGATIVE) Urine Bilirubin Negative (NEGATIVE) Urine Urobilinogen 0.2 (NORMAL) EU/DL Ur Leukocyte Esterase Negative (NEGATIVE) Urinalysis Comment Microscopic not ind. Urine Opiates Screen ng/mL Ur Oxycodone Screen ng/mL Urine Methadone Screen ng/mL Ur Propoxyphene Screen ng/mL Ur Barbiturates Screen ng/mL U Tricyclic Antidepress ng/mL Ur Phencyclidine Scrn ng/mL Ur Amphetamines Screen ng/mL U Methamphetamines Scrn ng/mL U Benzodiazepines Scrn ng/mL Urine Cocaine Screen ng/mL U Cannabinoids Screen ng/mL 03/24/17 Range/Units 06:34 WBC (4.5-11.0) T/MM3 RBC (4.00-5.20) M/MM3 Hgb (12-16) GM/DL Hct (36-46) % MCV (80-100) UM3 MCH (26-34) UUG MCHC (31-37) GM/DL RDW Std Deviation (36.9-50.2) FL Plt Count (130-400) T/MM3 MPV (9.4-12.4) UM3 Immature Gran % (Auto) (0.0-0.5) % Neut % (Auto) (33-66) % Lymph % (Auto) (23-45) % [place] % (Auto) (0-9.0) % Eos % (Auto) (0-4) % Baso % (Auto) (0-2) % Neut # (Auto) (1.8-7.7) T/MM3 Lymph # (Auto) (1-4.8) T/MM3 [place] # (Auto) (0-0.8) T/MM3 Eos # (Auto) (0-0.5) T/MM3 Baso # (Auto) (0-0.2) T/MM3 Abs Immat Gran (auto) (0.00-0.03) T/MM3 Turbidity (0-20) Sodium (134-144) MEQ/L Potassium (3.6-5) MEQ/L Chloride (98-107) MEQ/L Carbon Dioxide (22-30) MEQ/L Anion Gap (5-15) MEQ/L BUN (7-17) MG/DL Creatinine (0.7-1.2) MG/DL GFR Calculation BUN/Creatinine Ratio (6-26) RATIO Glucose (65-110) MG/DL Calculated Osmolality (261-280) MOSM/KG Calcium (8.4-10.2) MG/DL Total Bilirubin (0.20-1.30) MG/DL Icterus Index (0-7) AST (14-36) U/L ALT (9-52) U/L Alkaline Phosphatase (38-126) U/L Total Protein (6.3-8.2) G/DL Albumin (3.5-5.0) G/DL Globulin (2.4-3.6) G/DL Albumin/Globulin Ratio (1.1-2.2) RATIO TSH (0.47-4.68) MIU/L Specimen Hemolysis (0-25) Ur Collection Type Urine Color (YELLOW) Urine Clarity Urine pH (5.0-8.0) Ur Specific [place] (1.015-1.025) Urine Protein (NEGATIVE) Urine Glucose (UA) (NEGATIVE) Urine Ketones (NEGATIVE) Urine Occult Blood (NEGATIVE) Urine Nitrate (NEGATIVE) Urine Bilirubin (NEGATIVE) Urine Urobilinogen (NORMAL) EU/DL Ur Leukocyte Esterase (NEGATIVE) Urinalysis Comment Urine Opiates Screen Negative ng/mL Ur Oxycodone Screen Negative ng/mL Urine Methadone Screen Negative ng/mL Ur Propoxyphene Screen Negative ng/mL Ur Barbiturates Screen Negative ng/mL U Tricyclic Antidepress Negative ng/mL Ur Phencyclidine Scrn Negative ng/mL Ur Amphetamines Screen Negative ng/mL U Methamphetamines Scrn Negative ng/mL U Benzodiazepines Scrn Negative ng/mL Urine Cocaine Screen Negative ng/mL U Cannabinoids Screen Negative ng/mL Disposition Clinical Impression: Hyponatremia Disposition: To OBS [facility] Condition: Stable Prescriptions: No Action Levothyroxine Sodium [Levoxyl] 75 mcg PO ACB #0 ClonazePAM [Klonopin] 1 tab PO BID PRN PRN Reason: Anxiety Losartan [Cozaar] 50 mg PO DAILY Ativan (lorazepam) 1 mg tablet 1 mg PO BID propranolol 10 mg tablet 10 mg PO QID tab Zoloft (sertraline) 100 mg tablet 100 mg PO Q24H Advil (Ibuprofen) 200 mg tablet 400 mg PO Q4H PRN tab PRN Reason: Prn Orders Mapap Extra Strength 500 mg tablet 1,000 mg PO Q4H PRN tab PRN Reason: Prn Orders Nitrostat (nitroglycerin) 0.4 mg sublingual tablet 0.4 mg SL Q5M PRN PRN Reason: Chest Pain Keppra (levetiracetam) 500 mg tablet 500 mg PO BID #60 tab lubiprostone 24 mcg capsule 24 mcg PO QAM cap aspirin 81 mg tablet,delayed release 81 mg PO DAILY tab Norvasc (amlodipine) 5 mg tablet 5 mg PO DAILY tab K-Tab (potassium chloride ER) 20 mEq tablet 20 meq PO DAILY tab Zocor (simvastatin) 20 mg tablet 20 mg PO QAM Colace (Docusate sodium) 100 mg capsule 100 mg PO BID Glucophage (metformin) 1,000 mg tablet 1,000 mg PO BID oxybutynin chloride 5 mg tablet 5 mg PO DAILY tab Actos (pioglitazone) 15 mg tablet 15 mg PO DAILY tab Referrals: Kaya Bolden MD [Primary Care Provider] - Time of Disposition: 07:37 - Seen By: physician
[2017-03-24] MEDS: SALINE FLUSH 10ml SYRINGE IVF PRN ×2 (07:57→11:38)
--- NOTE | 2017-03-24 08:16 | History & Physical Report ---
History of Present Illness Date: 03/24/17 Chief complaint: mental status change HPI: Patient is a 51 yo female with Godwin's syndrome who resides in [facility]. She woke up this am and fell getting out of bed which is not normal for her. EMS was called and she was brought to the ED as patient was very unsteady. In the ED, she was given Ativan and Saphris and Lasix. Her sodium was 119. Staff from [facility] [place] reports that patient has had increasing behaviors since her last hospitalization where most of her meds were discontinued/held. On questioning, staff reports patient frequently drinks coffee and water. They state if they would let her carry around a coffee pot with her, she would drink coffee all day long. Patient has urinary frequency chronically per staff. Patient was seen in CCU with her staff member present. She keeps her eyes closed throughout her interview and exam. She tries to climb out of bed and is insistent that the nurse change her as she was incontinent/wet. She is unable to tell me where she is and is unable to tell me the staff member who is with her (who she knows well.) Of note, patient was hospitalized here 02/27/17 through 03/02/17 for a rash thought most likely to be a drug related rash although patient was not taking any new medications. She was given steroids and all of her meds were held and her trileptal was switched to keppra. She was seen again in the ED shortly after her hospitalization due to worsening of her rash and was transferred to the burn unit in [place]. By that time, her skin biopsy was resulted which was non-specific and differential dx included drug hypersensitivity reaction vs fixed drug eruption vs erythmea multiform. SHe was given steroids in [place] and DC'd home on day #2. It appears that the majority of her HTN meds were resumed, but the only psych med she is on currently is clonazepam.Prior to her hospitalization she was on Geodon and risperdal. Medications discontinued with previous hospitalization are Geodon 60 mg twice a day, omeprazole 40 mg daily, oxcarbazepine 300, Ditropan 5 mg twice a day, pioglitazone 15 mg every morning, Risperdal 2 mg daily at bedtime, simvastatin 20 mg daily at bedtime, sucralfate 4 times a day, Amitiza 24 g every morning and aspirin 81 mg daily. Her current medications include clonazepam 1 mg twice a day, levothyroxine 75 g every morning, levetiracetam 500 mg twice a day, losartan 50 mg daily, metformin 1000 twice a day, propranolol 10 mg 4 times a day, sertraline 100 mg every morning, amlodipine 5 mg daily, Colace 100 mg twice a day, Benadryl 25 mg 4 times a day when necessary itching, lactase enzyme 3000 units-3 tabs with first bite of dairy. Review of Systems ROS unobtainable: due to mental status - Gastrointestinal Gastrointestinal: Present: abdominal pain ("stomach ache") - Integumentary/Breasts Integumentary Comments: chronically dry skin - Psychiatric Psychiatric: Present: behavioral changes PFSH Medical History Hyponatremia Recurrent seizures HTN (hypertension) Diabetes mellitus type 2, controlled Anxiety Depression Hypothyroidism Obesity (BMI 30-39.9) Godwin syndrome with mosaicism Vasovagal syncope Surgical History: Unknown Family History: Unknown - Social History Smoking status: Unknown if ever smoked Housing: other ([facility] [place] skilled nursing) Current occupational status: disabled Social history: PCP - Dr Bolden Medications Home Medications Medication Instructions Recorded Confirmed Type Levothyroxine Sodium [Levoxyl] 75 mcg PO ACB #0 09/08/08 03/24/17 History Colace (Docusate sodium) 100 mg 100 mg PO BID 03/13/17 03/24/17 History capsule Glucophage (metformin) 1,000 mg 1,000 mg PO BID 03/13/17 03/24/17 History tablet Nitrostat (nitroglycerin) 0.4 mg 0.4 mg SL Q5M PRN 03/13/17 03/24/17 History sublingual tablet Zoloft (sertraline) 100 mg tablet 100 mg PO Q24H 03/13/17 03/24/17 History propranolol 10 mg tablet 10 mg PO QID tab 03/13/17 03/24/17 History Norvasc (amlodipine) 5 mg tablet 5 mg PO DAILY tab 03/21/17 03/24/17 History Acetaminophen 650 mg PO PRN 03/24/17 History ClonazePAM [Klonopin] 1 tab PO BID PRN 03/24/17 03/24/17 History DiphenhydrAMINE [Benadryl] 1 cap PO Q4H PRN 03/24/17 03/24/17 History Guaifenesin/Dextromethorphan 10 ml PO Q4H PRN 03/24/17 03/24/17 History [Tussin Dm Syrup] Lactase [Lactase Enzyme] 9,000 unit PO DAILY PRN 03/24/17 03/24/17 History Losartan [Cozaar] 50 mg PO DAILY 03/24/17 03/24/17 History Nitroglycerin [Nitrostat] 0.3 mg SL Q5M PRN 03/24/17 03/24/17 History Allergies Allergy/AdvReac Type Severity Reaction Status Date / Time Penicillins Allergy Unknown Verified 03/21/17 09:59 milk AdvReac Unknown LACTOSE Verified 03/21/17 09:59 INTOLERANT Exam Vital Signs: Temperature 97.8 F 03/24/17 05:39 Pulse Rate 95 03/24/17 05:39 Respiratory Rate 16 03/24/17 05:39 Blood Pressure 144/104 H 03/24/17 08:02 Pulse Oximetry 98 03/24/17 05:39 - Constitutional Present: well nourished, well developed, obese, disheveled - Routine HEENT Exam Head: Present: normocephalic Comments: dry, crusty rash around nares. Unable to examine eyes and oral exam as patient refuses to open eyes and/or mouth. - Routine Neck Exam Present: supple. Absent: lymphadenopathy, thyromegaly - Routine Respiratory Exam Present: CTA bilaterally. Absent: wheezes - Routine Cardiovascular Exam Present: RRR. Absent: murmur - Routine Abdominal Exam Present: soft, normoactive bowel sounds, tenderness (mild epigastric/RUQ), non distended - Routine Extremities Exam Present: no edema, normal capillary refill - Routine Skin Exam Comments: some excoriation to leg. Dry skin. - Routine Neurological Exam Present: altered mental status. Absent: oriented X3 - Routine Psychiatric Exam Present: unable to assess. Absent: good insight Results - Labs CBC & Chem 7: 03/24/17 06:24 03/24/17 11:35 Labs: Laboratory Tests 03/24/17 06:24 Calculated Osmolality 229 L AST 34 ALT 58 H TSH 1.20 Laboratory Tests 03/24/17 06:34 Urine Clarity Clear Urine pH 5.5 Ur Specific [place] <=1.005 L Urine Protein Negative Urine Glucose (UA) Negative Urine Ketones Negative Urine Occult Blood Negative Urine Nitrate Negative Urine Bilirubin Negative Urine Urobilinogen 0.2 Ur Leukocyte Esterase Negative Assessment and Plan (1) Hyponatremia Current visit: Yes Status: Acute (2) Behavior disturbance Current visit: Yes Status: Acute (3) HTN (hypertension) Problem details: Good control. Current visit: No Status: Acute (4) Diabetes mellitus type 2, controlled Problem details: Excellent control of diabetes. Current visit: No Status: Chronic (5) Recurrent seizures Current visit: No Status: Chronic Assessment and Plan: Assessment Severe Hyponatremia Behavioral changes (following DC of multiple psych meds) Recurrent seizures HTN (hypertension) Diabetes mellitus type 2, controlled Anxiety Depression (?Bipolar) Hypothyroidism Obesity (BMI 30-39.9) Godwin syndrome with mosaicism Plan Patient admitted to CCU, attending Dr Liu, given her severe hypernatremia and altered mental status. Her stay is expected to exceed 2 overnights given the severity of the hyponatremia. Tyler placed with 1400cc's of urine return. Monitory I&0. Restrict fluids. Accuchecks ac hs. Continue metformin. Check urine sodium, urine osmolality, repeat serum sodium now and q 2 hours. Consider resuming Geodon or starting another similar medication for behaviors. Case discussed with Dr Liu. He will determine if/when hypertonic saline is needed. Pt is a full code. Upon discharge, care to return to Dr. Bolden. S: Pt is not really cooperating with hx, denies any n/v/d, f/c, cp or sob. A/P: Pt has had many psych med changes recently which would explain her behavioral sx 's. Possibly her psych sx's led to polydipsia and possibly to hyponatremia. Na check when pt got to the ICU was 130, an increase of 11 from ED. Pt had gotten NS fluids in the ED. Stopped all fluids and started D5 bolus to get Na down. Also started desmopressin. Will target goal of 4-6 change in sodium per 24hrs with no more then 8. Will monitor her Na very carefully. Pt is likely having some mild to moderate sx's from hyponatremia but it is difficult to say because pt got ativan in ED and is currently somnolent possibly d/t that as well. Will check Uosm and Dayna to work up etiology for hyponatremia. Hospital Course Summary Disclaimer: The visit summary below is not to be considered part of the above Progress Note. Hospital Course: Assessment Severe Hyponatremia Behavioral changes (following DC of multiple psych meds) Recurrent seizures HTN (hypertension) Diabetes mellitus type 2, controlled Anxiety Depression (?Bipolar) Hypothyroidism Obesity (BMI 30-39.9) Godwin syndrome with mosaicism 03/24/17 Hospital admission Patient admitted to CCU, attending Dr Liu, given her severe hypernatremia and altered mental status. Her stay is expected to exceed 2 overnights given the severity of the hyponatremia. SCD's for VTE prophylaxis. Tyler placed with 1400cc's of urine return. Monitory I&0. Restrict fluids. Accuchecks ac hs. Continue metformin. Check urine sodium, urine osmolality, repeat serum sodium now and q 2 hours. Consider resuming Geodon or starting another similar medication for behaviors. Case discussed with Dr Liu. He will determine if/when hypertonic saline is needed and will reconcile home meds. Pt is a full code. Upon discharge, care to return to Dr. Bolden.
[2017-03-24] MEDS ORDERED: ASENAPINE 5 MG SUBLINGUAL TABLET SL SCH (09:00)
[2017-03-24 09:03] VITALS: BMI 38.7
[2017-03-24] MEDS: PANTOPRAZOLE 40 MG INJECTION IVP SCH (11:38)
[2017-03-24] MEDS ORDERED: D5W 500 ML IV SCH (12:15)
[2017-03-24] MEDS: ClonazePAM 1 MG TABLET PO PRN (16:03)
[2017-03-24] MEDS ORDERED: INSULIN ASPART 100unit/ml INJECTION SQ PRN (18:06)
[2017-03-24] MEDS: D5W 1,000 ML IV SCH (18:23)
[2017-03-24] MEDS: DESMOPRESSIN 4 MCG/ML IVP SCH ×2 (18:23→20:43)
[2017-03-24] MEDS: METFORMIN 1,000 MG TABLET PO SCH (20:43)
[2017-03-24] MEDS: PROPRANOLOL 10 MG TABLET PO SCH (22:41)
[2017-03-24] MEDS: AMLODIPINE 5 MG TABLET PO SCH (22:41)
[2017-03-24] MEDS: LEVETIRACETAM 500 MG TABLET PO SCH (22:41)
[2017-03-25] MEDS: D5W 1,000 ML IV SCH ×3 (00:55→22:17)
[2017-03-25] MEDS: DESMOPRESSIN 4 MCG/ML IVP SCH ×3 (05:37→19:44)
[2017-03-25] MEDS: LEVOTHYROXINE 75 MCG TABLET PO SCH (05:41)
[2017-03-25] MEDS: LEVETIRACETAM 500 MG TABLET PO SCH ×2 (09:22→21:05)
[2017-03-25] MEDS: PROPRANOLOL 10 MG TABLET PO SCH ×4 (09:22→21:05)
[2017-03-25] MEDS: AMLODIPINE 5 MG TABLET PO SCH (09:23)
[2017-03-25] MEDS: LOSARTAN 50 MG TABLET PO SCH (09:23)
[2017-03-25] MEDS: PANTOPRAZOLE 40 MG INJECTION IVP SCH (09:24)
--- NOTE | 2017-03-25 10:51 | Neuropsychiatric Consult ---
[facility] HPI Date: 03/25/17 Requesting Physician: Fransisca Celaya Reason for Consultation: Agitation Start Time: 10:15 Stop Time: 10:45 History of Present Illness: HPI: 51 Y/O CF with a hx of intellectual disability was sent from a long term after a fall. Pt was found to have hyponatremia and was admitted. Patient had a hospitalization a few weeks ago for a rash and her psychiatric meds were stopped at that time. According to long term staff the pt has had increasing behaviors since that time. Nursing reports the pt has been irritable primarily due to having a catheter which she would like removed but has been redirectable. On face to face the pt is irritable and focused on having the catheter removed. She is a poor historian and focuses on the catheter. Denies S/I. STRESSORS: Pt would like the catheter removed. PSYCH ROS: Pt is very concrete. She states she is "angry" about her current situation. She denies feeling depressed. Denies psychosis. PAST PSYCH: Unclear at this time. Pt has been on antipsychotics in the past but they were recently stopped due to a rash she developed. [facility]LY [facility] Patient Stated Medical History Seizures Yes Hypertension Yes Diabetes Mellitus Type 2 Yes Other GI Yes: DIVERTICULITIS Other Yes: FREQUENCY AFTER MED WAS DC'D Other Musculoskeletal Yes Depression Yes Other Reproductive Yes: AMENORRHEA PER PT Clinic Medical History (Last Reviewed 03/21/17 @ 10:13 by Lucas Helton MD) Hyponatremia (Acute Medical) Behavior disturbance (Acute Medical) Recurrent seizures (Chronic Medical) HTN (hypertension) (Acute Medical) Good control. Urticaria of entire body (Acute Medical) Diabetes mellitus type 2, controlled (Chronic Medical Unknown) Excellent control of diabetes. Anxiety (Chronic Medical) Depression (Chronic Medical) HTN (hypertension) (Chronic Medical) Seizure (Chronic Medical) Erythema multiforme (Inactive Medical) Hypothyroidism (Inactive Medical Unknown) Clinically euthyroid. Obesity (BMI 30-39.9) (Inactive Medical) Little worse. Seizure (Inactive Medical) Godwin syndrome with mosaicism (Inactive Medical) Vasovagal syncope (Inactive Medical) Medical History Updates: MR. Slaughter D/o Surgical History: Unknown - Social History Smoking status: Unknown if ever smoked Review of Systems - Psychiatric Psychiatric: Present: behavioral changes Mental Status Exam Vitals: Last Vital Signs Temp 98.7 F 03/25/17 08:30 Pulse 99 03/25/17 09:45 Resp 38 H 03/25/17 09:45 BP 129/80 03/25/17 09:00 Pulse Ox 97 03/25/17 09:45 Height: 1.3 m Weight: 65 kg - Mental Status Exam Muscle Strength/Tone: Normal Dressing: Casual Grooming: Good Attitude: Guarded Motor Activity: Agitation Eye Contact: Good Speech: Slowed Volume: Loud Rhythm: Mumbled Orientation: Oriented to person, Oriented to place Mood: Angry Affect: Angry Rate of Thoughts: Delayed Thought Organization: [place] Associations: Intact Abstract Reasoning: Poor abstract reasoning Thought Content: Somatic Concerns Perception/Psychotic: Perception Normal Language: Naming Impaired Fund of Knowledge: Poor fund of knowledge Memory: Poor-immediate, Poor-recent Suicidal Ideation: None Homicidal Ideation: None Insight: Poor Judgement: Poor Impulse Control: Fair - Laboratory Result Diagrams: 03/24/17 06:24 03/25/17 09:57 Laboratory Results - last 24 hr 03/24/17 03/24/17 03/24/17 11:35 13:36 15:49 Turbidity Sodium 129 L 130 L Potassium Chloride Carbon Dioxide Anion Gap BUN Creatinine GFR Calculation BUN/Creatinine Ratio Glucose Glucometer 110 Calculated Osmolality Calcium Phosphorus Magnesium Icterus Index Albumin Specimen Hemolysis 03/24/17 03/24/17 03/24/17 17:55 20:38 20:39 Turbidity Sodium 133 L 129 L Potassium Chloride Carbon Dioxide Anion Gap BUN Creatinine GFR Calculation BUN/Creatinine Ratio Glucose Glucometer 154 Calculated Osmolality Calcium Phosphorus Magnesium Icterus Index Albumin Specimen Hemolysis 03/24/17 03/25/17 03/25/17 22:29 00:21 04:30 Turbidity < 20 Sodium 128 L 126 L 127 L Potassium 2.8 L* D Chloride 93 L Carbon Dioxide 25 Anion Gap 9 BUN 5.0 L Creatinine 0.5 L GFR Calculation 130 BUN/Creatinine Ratio 10 Glucose 96 Glucometer Calculated Osmolality 242 L Calcium 8.6 Phosphorus 3.5 Magnesium 1.9 Icterus Index < 2 Albumin 3.6 Specimen Hemolysis < 15 03/25/17 09:57 Turbidity < 20 Sodium 129 L Potassium 3.2 L Chloride 95 L Carbon Dioxide 25 Anion Gap 9 BUN 5.0 L Creatinine 0.4 L GFR Calculation 168 BUN/Creatinine Ratio 13 Glucose 100 Glucometer Calculated Osmolality 246 L Calcium 8.8 Phosphorus Magnesium Icterus Index < 2 Albumin Specimen Hemolysis < 15 Assessment and Plan (1) Adjustment disorder with disturbance of conduct Current visit: Yes Status: Acute Discussed the case with Dr. Celaya. snf staff have reported behaviors have increased since stopping antipsychotics. At this time it would be reasonable to restart Risperdal 0.5mg BID to target agitation. It would be unlikely Risperdal would cause hyponatremia or contribute to the rash she had in the past. Agree with holding Zoloft as this could contribute to hyponatremia. Continue Clonazepam (2) Intellectual disability Current visit: Yes Status: Acute
[2017-03-25] MEDS: RisperiDONE 0.5 MG TABLET PO SCH ×2 (11:54→21:05)
--- NOTE | 2017-03-25 12:34 | Procedure Note ---
DATE OF PROCEDURE 03/24/2017 SURGEON Rory Dumont MD PREOPERATIVE DIAGNOSES 1. Hyponatremia. 2. Need for central venous access. POSTOPERATIVE DIAGNOSES 1. Hyponatremia. 2. Need for central venous access. PROCEDURE Placement of right internal jugular central venous line with sonographic guidance. ANESTHESIA 1% lidocaine. INDICATIONS The patient is a 51-year-old female who was admitted to the hospitalist service with hyponatremia of 119. She has had poor peripheral IV access and there have been difficulties with her frequent lab draws as well as administration of IV fluids. Central venous line was requested after failed attempts at placement of a PICC line or midline. FINDINGS The right internal jugular vein was widely patent on sonography. Postprocedure chest x-ray showed good position of the catheter with the tip in the superior vena cava and no evidence of pneumothorax. DESCRIPTION OF PROCEDURE After informed consent was obtained from the patient's guardian the procedure was performed in the critical care unit. The patient was placed in slight Trendelenburg position. I did utilize full contact precautions with sterile gown, gloves, and a hat and mask. The nurses in the room also wore a hat and mask. A full procedure drape was utilized. The right neck was prepped using chlorhexidine and was then draped with the procedure drape which covered the entire bed. The sterile sono probe was then brought onto the field and was used to examine the right internal jugular vein. Local was injected in the skin and subcutaneous tissue. A small skin incision was made with an 11-blade scalpel. The sono probe was then used to revisualize the internal jugular vein which was cannulated under direct vision with the sonogram. A Cook needle was utilized and a guidewire was easily threaded through the Cook needle. The Cook needle was then removed. A dilator was then passed over the guidewire and then removed. The triple-lumen central venous line was then threaded over the guidewire to a depth of 15 cm at the skin level. The guidewire was removed. All three ports aspirated and flushed easily. The catheter was secured to the skin using a silk suture after additional local was placed. A Biopatch was placed followed by two Tegaderm dressings as a bandage. Sterile caps had been applied to the end of the ports of the central venous line. A postprocedure chest x-ray was performed. The patient remained in the U in her preprocedure state. SUSIE
[2017-03-25] MEDS: METFORMIN 1,000 MG TABLET PO SCH ×2 (13:50→19:44)
--- NOTE | 2017-03-25 14:51 | Progress Note ---
- Date 03/25/17 Subjective: Liliya was up in a chair when seen and indicated that she doesn't feel good. She reported that she was angry and that she wanted to have "a big one" referring to a large glass of water. She also expressed frustration that she isn 't voiding as much is normal. It's noted that polyuria was described when she saw Dr. Helton recently. The patient denied dyspnea, cough, nausea, or lightheadedness. She reports that she sometimes chokes on food and that her caregiver sometimes chop up her food. Objective Vital signs: Temperature 98.7 F 03/25/17 08:30 Pulse Rate 99 03/25/17 09:45 Respiratory Rate 38 H 03/25/17 09:45 Blood Pressure 129/80 03/25/17 09:00 Pulse Oximetry 97 03/25/17 09:45 I/O [id number]/[id number] EXAM General-NAD, alert HEENT-conjunctiva clear, conjugate gaze, neck supple Lungs-respirations nonlabored, good airflow, breath sounds clear Cardiac-regular rhythm, S1-S2 Abd-soft, nontender, obese, diminished bowel sounds Ext-without edema Neuro-MAEW Skin-without generalized rash, scattered excoriations Psych-irritable, argumentative, perseverates, oriented to hospital - Results - Labs CBC & Chem 7: 03/24/17 06:24 03/25/17 09:57 Labs: 4 AM labs with sodium 127, potassium 2.8, phosphorus 3.5, magnesium 1.9 Urine sodium-23 urine osmolality-92 urine specific gravity<1.005 Assessment and Plan (1) Hyponatremia Current visit: Yes Status: Acute (2) Diabetes mellitus type 2, controlled Problem details: Excellent control of diabetes. Current visit: No Status: Chronic (3) Behavior disturbance Problem details: Adjustment disorder with disturbance of conduct Current visit : Yes Status: Acute (4) HTN (hypertension) Problem details: Good control. Current visit: No Status: Acute Assessment and Plan: Assessment Severe Hyponatremia Behavioral changes/adjustment disorder (following DC of multiple psych meds) Hypokalemia-not POA Polydipsia-chronic History of seizures HTN (hypertension) Diabetes mellitus type 2, controlled, A1c 5.7 on 03/21/17 Anxiety Depression (?Bipolar) Hypothyroidism Normocytic anemia, chronic Obesity (BMI 30-39.9) Godwin syndrome with mosaicism Plan Liliya had rapid rise of sodium level yesterday with both the initial and 3-4 hour sodium level confirmed. In the intervening time she received normal saline and 20 mg of Lasix IV. Due to the rapid rise in sodium level subsequently was treated with D5W and desmopressin which were both discontinued overnight when sodium level dropped back to about 127. Goal now is to let sodium rise slowly. Urine sodium and urine osmolality are both low and the patient is complaining bitterly of current fluid restriction (2 L daily) all of which support the suspicion of polydipsia as cause of presenting hyponatremia. Sertraline will be held as possible contributing factor to hyponatremia however it is known that she was taking 100 mg of sertraline in early January at which time sodium was 145 and I suspect this is not an SSRI effect. Multiple medications have been changed over the past month due to the rash from head and subsequent concern of medication induced complications. She clearly will require treatment for hypertension, diabetes, hypothyroidism, seizure disorder, and some psychiatric stabilization. In discussion with Dr. Ramírez was elected to resume low-dose antipsychotic with risperidone at 0.5 mg twice a day. Potassium is being corrected orally with patient receiving 40 mEq potassium early in the morning and again at noon. Electrolytes to be reevaluated at 4 PM and in a.m. Blood sugars are well controlled as is blood pressure on current regimen. Old records reviewed-discussed with nursing and Dr. Ramírez. DVT Prophylaxis: SCD's GI Prophylaxis: Protonix, other (omeprazole) Resuscitation Status: Full Code Hospital Course Summary Disclaimer: The visit summary below is not to be considered part of the above Progress Note. Hospital Course: Assessment Severe Hyponatremia Behavioral changes (following DC of multiple psych meds) Recurrent seizures HTN (hypertension) Diabetes mellitus type 2, controlled Anxiety Depression (?Bipolar) Hypothyroidism Obesity (BMI 30-39.9) Godwin syndrome with mosaicism 03/24/17 Hospital admission Patient admitted to CCU, attending Dr Liu, given her severe hyponatremia and altered mental status. Her stay is expected to exceed 2 overnights given the severity of the hyponatremia. SCD's for VTE prophylaxis. Tyler placed with 1400cc's of urine return. Monitory I&0. Restrict fluids. Accuchecks f/pc. Continue metformin. Check urine sodium, urine osmolality, repeat serum sodium now and q 2 hours. Consider resuming Geodon or starting another similar medication for behaviors. Case discussed with Dr Liu. He will determine if/when hypertonic saline is needed and will reconcile home meds. Pt is a full code. Upon discharge, care to return to Dr. Bolden. 03/25/17 Liliya had rapid rise of sodium level yesterday with both the initial and 3-4 hour sodium level confirmed. In the intervening time she received normal saline and 20 mg Lasix IV. Due to the rapid rise in sodium level subsequently was treated with D5W and desmopressin which were both discontinued overnight when sodium level dropped back to about 127. Goal now is to let sodium rise slowly. Urine sodium and urine osmolality are both low and the patient is complaining bitterly of current fluid restriction (2 L daily) all of which support the suspicion of polydipsia as cause of presenting hyponatremia. Sertraline will be held as possible contributing factor to hyponatremia however it is known that she was taking 100 mg of sertraline in early January at which time sodium was 145 and I suspect this is not an SSRI effect. Multiple medications have been changed over the past month due to the rash from head and subsequent concern of medication induced complications. She clearly will require treatment for hypertension, diabetes, hypothyroidism, seizure disorder, and some psychiatric stabilization. In discussion with Dr. Ramírez was elected to resume low-dose antipsychotic with risperidone at 0.5 mg twice a day. Potassium is being corrected orally with patient receiving 40 mEq potassium early in the morning and again at noon. Electrolytes to be reevaluated at 4 PM and in a.m. Blood sugars are well controlled as is blood pressure on current regimen. 03/25/17 15:15
--- NOTE | 2017-03-25 15:08 | Progress Note ---
DATE OF VISIT 03/25/2017 REASON FOR VISIT Evaluate central line. Liliya is doing okay. She complains that she can't go to the bathroom after her Tyler catheter was just removed. Her nurse reports that the central line has been working well. Her central line has a dressing in place and there is no evidence of swelling or infection. Since the line is working well I will sign off of Liliya's case. Call me if any further help is needed. SUSIE
[2017-03-25] MEDS: NS 1,000 ML IV SCH (18:21)
[2017-03-25] MEDS: SENNA + DOCUSATE TABLET PO SCH (21:05)
[2017-03-25] MEDS: ClonazePAM 1 MG TABLET PO PRN (22:03)
[2017-03-26] MEDS ORDERED: PHENAZOPYRIDINE 95 MG TABLET PO PRN (00:30)
[2017-03-26] MEDS: ACETAMINOPHEN 325 MG TABLET PO PRN ×2 (00:45→05:21)
[2017-03-26] MEDS: LEVOTHYROXINE 75 MCG TABLET PO SCH (05:21)
[2017-03-26] MEDS: OMEPRAZOLE 20 MG CAPSULE PO SCH (05:21)
[2017-03-26] MEDS: NS 1,000 ML IV SCH (07:45)
[2017-03-26] MEDS: LOSARTAN 50 MG TABLET PO SCH (08:03)
[2017-03-26] MEDS: AMLODIPINE 5 MG TABLET PO SCH (08:03)
[2017-03-26] MEDS: METFORMIN 1,000 MG TABLET PO SCH ×2 (08:03→17:50)
[2017-03-26] MEDS: PROPRANOLOL 10 MG TABLET PO SCH ×4 (08:03→21:12)
[2017-03-26] MEDS: RisperiDONE 0.5 MG TABLET PO SCH ×2 (08:04→21:13)
[2017-03-26] MEDS: LEVETIRACETAM 500 MG TABLET PO SCH ×2 (08:04→21:12)
[2017-03-26] MEDS: SENNA + DOCUSATE TABLET PO SCH ×2 (08:04→21:02)
--- NOTE | 2017-03-26 10:23 | XRay Report ---
Indication: Placement of RIJ CVL PROCEDURE: XR chest post-procedure 1V: Encounter: Initial Comparison: March 05, 2017 Findings: Right internal jugular central venous line in place with the tip projecting over the right atrium. No pneumothorax or evidence for mediastinal hemorrhage. There is consolidative opacity in the right upper lobe. No gross pleural effusion. Heart size and mediastinal contours are stable. Impression: 1. New right IJ line as above. 2. Right upper lobe pneumonia or atelectasis. .
--- NOTE | 2017-03-26 16:14 | Progress Note ---
- Date 03/26/17 Subjective: Liliya again complains that she "can't have a big one"; today referring to a bowel movement. Nursing reports that she's had several small loose stools today and has had significant amount of gas. Oral intake is good. Patient is unsteady on her feet and reports that she feels like she will fall sometimes. She denied dyspnea, nausea, fever, or pain. She reports sleeping well overnight although nursing describes that she was restless. She continues to require nearly one-on- one care but was less demanding regarding fluid intake in my presence today. Objective Vital signs: Temperature 98.5 F 03/26/17 12:01 Pulse Rate 122 H 03/26/17 13:00 Respiratory Rate 30 H 03/26/17 13:00 Blood Pressure 118/82 03/26/17 11:05 Pulse Oximetry 100 - RA 03/26/17 12:45 I/O [id number] EXAM General-NAD, alert HEENT-conjunctiva clear, sclera anicteric Lungs-respirations nonlabored, good airflow, breath sounds clear Cardiac-regular rhythm, S1-S2, low-grade tachycardia-sinus tach on telemetry by my review Abd-soft, nontender, bowel sounds present/active Ext-without edema Neuro-MAEW, unsteady when up in room Psych-anxious - Results - Labs CBC & Chem 7: 03/24/17 06:24 03/26/17 14:12 Labs: BMP at 4 AM with sodium 134, potassium 3.7, creatinine 0.4. Blood sugars consistently normal. Magnesium 2.1, phosphorus 3.5, albumin 3.4. Urine sodium < 5. Iron studies pending. Assessment and Plan (1) Hyponatremia Problem details: Hypoosmolar hyponatremia; urine sodium/osmolality low Current visit: Yes Status: Acute (2) Diabetes mellitus type 2, controlled Problem details: Excellent control of diabetes. Current visit: No Status: Chronic (3) Behavior disturbance Problem details: Adjustment disorder with disturbance of conduct Current visit : Yes Status: Acute (4) HTN (hypertension) Problem details: Good control. Current visit: No Status: Acute Assessment and Plan: Assessment Severe Hyponatremia Behavioral changes/adjustment disorder (following DC of multiple psych meds) Hypokalemia-not POA Polydipsia-chronic History of seizures HTN (hypertension) Diabetes mellitus type 2, controlled, A1c 5.7 on 03/21/17 Anxiety Depression (?Bipolar) Hypothyroidism Normocytic anemia, chronic Obesity (BMI 30-39.9) Godwin syndrome with mosaicism Plan Serum sodium stabilizing. IV fluids discontinued this morning and will continue to monitor sodium. Urine sodium remains very low as she is excreting hypoosmolar urine; urine studies do not support diagnosis of SIADH. TSH normal; will obtain urine test to exclude as a cause of hypoosmolar hyponatremia and will also screen cortisol level. Continue fluid restriction. Behavior seems slightly improved with low-dose Risperdal today but still requires continual attention. Diabetes/hypertension stable. Potassium adequately replaced. Medically stable to transfer out of the ICU however will require one-on-one care which is not currently available on the floor to prevent patient from accessing fluids independently. Hospital Course Summary Disclaimer: The visit summary below is not to be considered part of the above Progress Note. Hospital Course: Assessment Severe Hyponatremia Behavioral changes (following DC of multiple psych meds) Recurrent seizures HTN (hypertension) Diabetes mellitus type 2, controlled Anxiety Depression (?Bipolar) Hypothyroidism Obesity (BMI 30-39.9) Godwin syndrome with mosaicism 03/24/17 Hospital admission Patient admitted to CCU, attending Dr Liu, given her severe hyponatremia and altered mental status. Her stay is expected to exceed 2 overnights given the severity of the hyponatremia. SCD's for VTE prophylaxis. Tyler placed with 1400cc's of urine return. Monitory I&0. Restrict fluids. Accuchecks f/pc. Continue metformin. Check urine sodium, urine osmolality, repeat serum sodium now and q 2 hours. Consider resuming Geodon or starting another similar medication for behaviors. Case discussed with Dr Liu. He will determine if/when hypertonic saline is needed and will reconcile home meds. Pt is a full code. Upon discharge, care to return to Dr. Bolden. 03/25/17 Liliya had rapid rise of sodium level yesterday with both the initial and 3-4 hour sodium level confirmed. In the intervening time she received normal saline and 20 mg Lasix IV. Due to the rapid rise in sodium level subsequently was treated with D5W and desmopressin which were both discontinued overnight when sodium level dropped back to about 127. Goal now is to let sodium rise slowly. Urine sodium and urine osmolality are both low and the patient is complaining bitterly of current fluid restriction (2 L daily) all of which support the suspicion of polydipsia as cause of presenting hyponatremia. Sertraline will be held as possible contributing factor to hyponatremia however it is known that she was taking 100 mg of sertraline in early January at which time sodium was 145 and I suspect this is not an SSRI effect. Multiple medications have been changed over the past month due to the rash from head and subsequent concern of medication induced complications. She clearly will require treatment for hypertension, diabetes, hypothyroidism, seizure disorder, and some psychiatric stabilization. In discussion with Dr. Ramírez was elected to resume low-dose antipsychotic with risperidone at 0.5 mg twice a day. Potassium is being corrected orally with patient receiving 40 mEq potassium early in the morning and again at noon. Electrolytes to be reevaluated at 4 PM and in a.m. Blood sugars are well controlled as is blood pressure on current regimen. 03/26/17 16:33 Serum sodium stabilizing. IV fluids discontinued this morning and will continue to monitor sodium. Urine sodium remains very low as she is excreting hypoosmolar urine; urine studies do not support diagnosis of SIADH. TSH normal; will obtain urine test to exclude as a cause of hypoosmolar hyponatremia and will also screen cortisol level. Continue fluid restriction. Behavior seems slightly improved with low-dose Risperdal today but still requires continual attention. Diabetes/hypertension stable. Potassium adequately replaced. Medically stable to transfer out of the ICU however will require one-on-one care which is not currently available on the floor to prevent patient from accessing fluids independently.
[2017-03-27] MEDS: ClonazePAM 1 MG TABLET PO PRN (00:22)
[2017-03-27] MEDS: DiphenhydrAMINE 50 MG/ML INJECTION IVP PRN ×2 (01:20→07:29)
[2017-03-27] MEDS: LEVOTHYROXINE 75 MCG TABLET PO SCH (06:39)
[2017-03-27] MEDS: OMEPRAZOLE 20 MG CAPSULE PO SCH (06:39)
[2017-03-27] MEDS ORDERED: FALL RISK - PHARMACY CONSULT XX ONE (08:30)
[2017-03-27] MEDS: LEVETIRACETAM 500 MG TABLET PO SCH ×2 (08:32→21:18)
[2017-03-27] MEDS: PROPRANOLOL 10 MG TABLET PO SCH ×4 (08:32→21:19)
[2017-03-27] MEDS: SENNA + DOCUSATE TABLET PO SCH ×2 (08:32→21:18)
[2017-03-27] MEDS: AMLODIPINE 5 MG TABLET PO SCH (08:32)
[2017-03-27] MEDS: METFORMIN 1,000 MG TABLET PO SCH ×2 (08:32→17:56)
[2017-03-27] MEDS: RisperiDONE 0.5 MG TABLET PO SCH ×2 (08:33→21:19)
[2017-03-27] MEDS: LOSARTAN 50 MG TABLET PO SCH (08:33)
--- NOTE | 2017-03-27 21:42 | Progress Note ---
- Date 03/27/17 Subjective: Liliya transferred out of the ICU earlier today. She reports that she fell out of bed without injuring herself which transferred from the bed to the chair in the medical unit-nursing reports the patient "rolled out of bed" without injury. Liliya occasionally hints at her fluid restriction and requests a cup of water but is not demanding fluids as she earlier days; nursing reports that when she gets a glass of water or tea she typically will drink it rapidly. Patient reports cough without sputum production, no nausea, no lightheadedness. She walked around the unit without difficulty with nursing assistance and reports that she slept well last night. Nursing reports that the patient has been easy to redirect relative to prior days. Objective Vital signs: Temperature 96.7 F L 03/27/17 20:00 Pulse Rate 105 H 03/27/17 20:00 Respiratory Rate 20 03/27/17 20:00 Blood Pressure 121/68 03/27/17 20:00 Pulse Oximetry 100 03/27/17 20:00 NAD, alert, talkative but pleasant Conjugate gaze, conjunctiva clear, oropharynx clear Respirations nonlabored, good airflow, breath sounds clear Regular rhythm, S1-S2, low-grade tachycardia Abdomen soft, moderately obese, nontender, active bowel sounds Trace lower extremity edema Moving all extremities well Impulsive Height/Weight/BMI: Weight 69.1 kg Results - Labs CBC & Chem 7: 03/24/17 06:24 03/27/17 06:43 Labs: Serum iron 22, TIBC 386, iron saturation 6% Assessment and Plan (1) Hyponatremia Problem details: Hypoosmolar hyponatremia; urine sodium/osmolality low Current visit: Yes Status: Acute (2) Diabetes mellitus type 2, controlled Problem details: Excellent control of diabetes. Current visit: No Status: Chronic (3) Behavior disturbance Problem details: Adjustment disorder with disturbance of conduct Current visit : Yes Status: Acute (4) HTN (hypertension) Problem details: Good control. Current visit: No Status: Acute Assessment and Plan: Assessment Severe Hyponatremia Behavioral changes/adjustment disorder (following DC of multiple psych meds) Hypokalemia-not POA Polydipsia-chronic History of seizures HTN (hypertension) Diabetes mellitus type 2, controlled, A1c 5.7 on 03/21/17 Anxiety Depression (?Bipolar) Hypothyroidism Normocytic anemia, iron deficient, chronic Obesity (BMI 30-39.9) Godwin syndrome with mosaicism Plan Serum sodium stabilizing. Doing well overall. Hyponatremia likely due to to polydipsia. Continue fluid restriction, reassess sodium in the morning. Cortisol/ test pending-unclear cortisol was drawn this morning. Reordered for a.m. Iron deficient indices, supplemented initiated-defer further evaluation to PCP. Hospital Course Summary Disclaimer: The visit summary below is not to be considered part of the above Progress Note. Hospital Course: Assessment Severe Hyponatremia Behavioral changes (following DC of multiple psych meds) Recurrent seizures HTN (hypertension) Diabetes mellitus type 2, controlled Anxiety Depression (?Bipolar) Hypothyroidism Obesity (BMI 30-39.9) Godwin syndrome with mosaicism 03/24/17 Hospital admission Patient admitted to CCU, attending Dr Liu, given her severe hyponatremia and altered mental status. Her stay is expected to exceed 2 overnights given the severity of the hyponatremia. SCD's for VTE prophylaxis. Tyler placed with 1400cc's of urine return. Monitory I&0. Restrict fluids. Accuchecks f/pc. Continue metformin. Check urine sodium, urine osmolality, repeat serum sodium now and q 2 hours. Consider resuming Geodon or starting another similar medication for behaviors. Case discussed with Dr Liu. He will determine if/when hypertonic saline is needed and will reconcile home meds. Pt is a full code. Upon discharge, care to return to Dr. Bolden. 03/25/17 Liliya had rapid rise of sodium level yesterday with both the initial and 3-4 hour sodium level confirmed. In the intervening time she received normal saline and 20 mg Lasix IV. Due to the rapid rise in sodium level subsequently was treated with D5W and desmopressin which were both discontinued overnight when sodium level dropped back to about 127. Goal now is to let sodium rise slowly. Urine sodium and urine osmolality are both low and the patient is complaining bitterly of current fluid restriction (2 L daily) all of which support the suspicion of polydipsia as cause of presenting hyponatremia. Sertraline will be held as possible contributing factor to hyponatremia however it is known that she was taking 100 mg of sertraline in early January at which time sodium was 145 and I suspect this is not an SSRI effect. Multiple medications have been changed over the past month due to the rash from head and subsequent concern of medication induced complications. She clearly will require treatment for hypertension, diabetes, hypothyroidism, seizure disorder, and some psychiatric stabilization. In discussion with Dr. Ramírez was elected to resume low-dose antipsychotic with risperidone at 0.5 mg twice a day. Potassium is being corrected orally with patient receiving 40 mEq potassium early in the morning and again at noon. Electrolytes to be reevaluated at 4 PM and in a.m. Blood sugars are well controlled as is blood pressure on current regimen. 03/26/17 16:33 Serum sodium stabilizing. IV fluids discontinued this morning and will continue to monitor sodium. Urine sodium remains very low as she is excreting hypoosmolar urine; urine studies do not support diagnosis of SIADH. TSH normal; will obtain urine test to exclude as a cause of hypoosmolar hyponatremia and will also screen cortisol level. Continue fluid restriction. Behavior seems slightly improved with low-dose Risperdal today but still requires continual attention. Diabetes/hypertension stable. Potassium adequately replaced. Medically stable to transfer out of the ICU however will require one-on-one care which is not currently available on the floor to prevent patient from accessing fluids independently. 03/27/17 21:53 Doing well, sodium has normalized with fluid restriction. Cortisol pending. Transferred out of ICU. Iron supplement initiated for iron deficiency.
[2017-03-27] MEDS ORDERED: CEFTRIAXONE 1 G in NS 100 ML IV SCH (23:45)
[2017-03-28] MEDS ORDERED: NS FLUSH BAG 500ml IV PRN (00:18)
[2017-03-28] MEDS: SALINE FLUSH 10ml SYRINGE IVF PRN ×2 (00:23→06:30)
[2017-03-28 00:24] VITALS: RESP 16
[2017-03-28] MEDS: LEVOTHYROXINE 75 MCG TABLET PO SCH (06:30)
[2017-03-28] MEDS: OMEPRAZOLE 20 MG CAPSULE PO SCH (06:30)
[2017-03-28] MEDS ORDERED: FERROUS SULFATE 324 MG TABLET PO SCH (08:00)
[2017-03-28] MEDS: METFORMIN 1,000 MG TABLET PO SCH (08:43)
[2017-03-28] MEDS: LEVETIRACETAM 500 MG TABLET PO SCH (08:43)
[2017-03-28] MEDS: RisperiDONE 0.5 MG TABLET PO SCH (08:44)
[2017-03-28] MEDS: LOSARTAN 50 MG TABLET PO SCH (08:44)
[2017-03-28] MEDS: AMLODIPINE 5 MG TABLET PO SCH (08:44)
[2017-03-28] MEDS: PROPRANOLOL 10 MG TABLET PO SCH ×2 (08:44→13:45)
[2017-03-28] MEDS: SENNA + DOCUSATE TABLET PO SCH (08:45)
[2017-03-28] MEDS ORDERED: SENNA + DOCUSATE TABLET PO SCH (09:00)
[2017-03-28] MEDS ORDERED: PHENAZOPYRIDINE 95 MG TABLET PO PRN (10:48)
[2017-03-28] MEDS ORDERED: SERTRALINE 50 MG TABLET PO SCH (11:00)
[2017-03-28] MEDS: MAGNESIUM SULFATE 1gm PREMIX 1 GM/100 ML BAG IV SCH ×2 (11:36→12:40)
[2017-03-28 12:56] VITALS: BP 130/89; PULSE 100; TEMP 96.9; O2SAT 100
--- NOTE | 2017-03-28 13:52 | Extended Care Facility Orders ---
Admission Orders Admit to:: Other Allergies/Adverse Reactions: Allergies Penicillins Allergy (Unknown, Verified 03/21/17 09:59) lactose Adverse Reaction (Mild, Verified 03/27/17 11:18) diarrhea Admitting Diagnosis: symptomatic hyponatremia Admitting Physician: Brendan Liu MD Attending Physician: Fransisca Celaya MD Code Status: Full Code Rehab Potential: fair Rehab Prognosis: fair Diet: Diabetic, fluid restriction 2 L daily Fpc Certification: I certify that SNF services are required to be given on an Inpatient basis because of the patients need for care home care on a continuing basis for the condition(s) for which he/she received inpatient hospital services prior to his/her transfer to the SNF. SNF inpatient care is necessary for the following reasons Indication for Fpc: Not Applicable - Additional Information In Event of Arrest: Start CPR,call 911,send patient to the ER Laboratory/Radiology: Basic metabolic panel in 1 week-diagnosis hyponatremia Additional Orders: Monitor patient's fluid intake, limit to 2 L total fluid daily. Continue antibiotics for 2 additional days-next dose of Cefpodoxime due this evening. Iron started during hospital stay for low iron level, sertraline dose decreased in the event it was contributing to hyponatremia although known that previously sodium was normal on 100 mg sertraline.
[2017-03-28] MEDS ORDERED: NEOMYCIN/POLYMYXIN/BACITRACIN OINT PACKET TP ONE (14:48)
--- NOTE | 2017-03-28 21:14 | Discharge Summary ---
Discharge Information Date of admission: 03/25/17 10:40 Anticipated date of discharge: 03/28/17 Attending Physician: Fransisca Celaya MD Primary care physician: Kaya Bolden MD Consults: Dr. Rory Dumont for central line placement Dr. Rabia Ramírez for neuropsychiatric evaluation - Discharge Diagnosis (1) Hyponatremia Status: Acute (2) Diabetes mellitus type 2, controlled Status: Chronic (3) Behavior disturbance Status: Acute (4) HTN (hypertension) Status: Acute Severe Hyponatremia c/w psychogenic polydipsia Behavioral changes/adjustment disorder Hypokalemia-not POA Polydipsia-chronic History of seizures HTN (hypertension) Diabetes mellitus type 2, controlled, [id number], without complications Anxiety Iron deficiency anemia - Procedures Procedures: Right IJ central line placement on 03/24/70 - Laboratory Labs: On admission-03/24/17-white count 9.1, hemoglobin 10.9 with MCV 83.8. Admission sodium 119, chloride 87, BUN 6, creatinine 0.5, calculated osmolality 229, TSH 1.2 Urine osmolality 92, urine sodium 23, urine test negative; urine drug screen negative on 03/24 Serum iron 22, TIBC 384, iron saturation 6% on 03/26 A.m. cortisol 11 on 03/28 Urinalysis on 03/27 with positive nitrite, TNTC WBC, +2 bacteria 03/28/17 08:30 - Microbiology Microbiology 03/27/17 23:06 Urine, Voided (Cc/notcc) Urine Culture - Preliminary Culture Initiated - Results Pending - Radiology Radiology: Chest x-ray on 03/24/17 demonstrated right upper lobe atelectasis and right IJ in good position; no pneumothorax History of Present Illness HPI: Patient is a 51 yo female with Godwin's syndrome who resides in [facility]. She woke up this am and fell getting out of bed which is not normal for her. EMS was called and she was brought to the ED as patient was very unsteady. In the ED, she was given Ativan and Saphris and Lasix. Her sodium was 119. Staff from [facility] [place] reports that patient has had increasing behaviors since her last hospitalization where most of her meds were discontinued/held. On questioning, staff reports patient frequently drinks coffee and water. They state if they would let her carry around a coffee pot with her, she would drink coffee all day long. Patient has urinary frequency chronically per staff. Patient was seen in CCU with her staff member present. She keeps her eyes closed throughout her interview and exam. She tries to climb out of bed and is insistent that the nurse change her as she was incontinent/wet. She is unable to tell me where she is and is unable to tell me the staff member who is with her (who she knows well.) Of note, patient was hospitalized here 02/27/17 through 03/02/17 for a rash thought most likely to be a drug related rash although patient was not taking any new medications. She was given steroids and all of her meds were held and her trileptal was switched to keppra. She was seen again in the ED shortly after her hospitalization due to worsening of her rash and was transferred to the burn unit in [place]. By that time, her skin biopsy was resulted which was non-specific and differential dx included drug hypersensitivity reaction vs fixed drug eruption vs erythmea multiform. SHe was given steroids in [place] and DC'd home on day #2. It appears that the majority of her HTN meds were resumed, but the only psych med she is on currently is clonazepam.Prior to her hospitalization she was on Geodon and risperdal. Medications discontinued with previous hospitalization are Geodon 60 mg twice a day, omeprazole 40 mg daily, oxcarbazepine 300, Ditropan 5 mg twice a day, pioglitazone 15 mg every morning, Risperdal 2 mg daily at bedtime, simvastatin 20 mg daily at bedtime, sucralfate 4 times a day, Amitiza 24 g every morning and aspirin 81 mg daily. Her current medications include clonazepam 1 mg twice a day, levothyroxine 75 g every morning, levetiracetam 500 mg twice a day, losartan 50 mg daily, metformin 1000 twice a day, propranolol 10 mg 4 times a day, sertraline 100 mg every morning, amlodipine 5 mg daily, Colace 100 mg twice a day, Benadryl 25 mg 4 times a day when necessary itching, lactase enzyme 3000 units-3 tabs with first bite of dairy. Hospital Course This is a general summary of the patient's hospital course. For more details refer to the complete medical record. Hospital course: Assessment Severe Hyponatremia Behavioral changes/adjustment disorder (following DC of multiple psych meds) Hypokalemia-not POA Polydipsia-chronic UTI-03/27/17 History of seizures HTN (hypertension) Diabetes mellitus type 2, controlled, A1c 5.7 on 03/21/17 Anxiety Depression (?Bipolar) Hypothyroidism Normocytic anemia, iron deficient, chronic Obesity (BMI 30-39.9) Godwin syndrome with mosaicism Hospital course Liliya was hospitalized with behavioral changes following multiple medications during prior hospitalization. She had increasing gait instability recently culminating in a fall on the date of admission. During initial assessment she was found to have a sodium of 119. She was hypoosmolar on admission and urine sodium/urine osmolality were low. History suggested excess fluid intake chronically raising question of polydipsia as cause of hyponatremia. Fluid restriction was initiated. The patient was initially treated with normal saline and received a single dose of Lasix after which sodium brown quickly to 130 ( both values were confirmed). Saline was discontinued and D5W given to prevent further rapid sodium rise. Subsequently sodium was allowed to rise more slowly with fluid restriction alone with discharge sodium 138. Sodium was stable for 2 days prior to discharge. Liliya was very resistant to fluid restriction initially but seemed less irritated by the fluid restriction at discharge. Evaluation for secondary causes of hyponatremia included evaluation of thyroid function, adrenal function, drug abuse, and . All were negative. Central line was placed on 03/24 due to inability to draw blood or replace IV access after the initial IV was lost. Due to the described behavioral disturbances she had experienced prior to hospitalization she was seen in consultation with Dr. Ramírez and it was elected to resume low-dose antipsychotic therapy with risperidone at 0.5 mg twice a day. Zoloft was initially held due to the potential for SSRIs to trigger hyponatremia however I elected to resume 50 mg of sertraline at discharge because Liliya was crying uncontrollably most of the day. She has been on sertraline for prolonged time and and has had multiple hospitalizations in the past with normal sodiums on the SSRI. Diabetes and blood sugars were stable throughout the hospitalization. Potassium required minor supplementation but was stable at discharge. Mild anemia noted with relatively low MCV-iron studies compatible with iron deficiency. Supplement initiated prior to discharge with further evaluation deferred to Dr. Bolden. Patient had increased complaints of urinary urgency and dysuria on 03/27 and was found to have pyuria consistent with UTI. She briefly had a Tyler catheter while in the ICU. She received one dose of ceftriaxone prior to conversion to Cefpodoxime to complete total of 3 days antibiotic therapy. Urine culture is pending at discharge. On the date of discharge Liliya continued to complain of urinary urgency and dysuria. She advised me that she felt like she had to pee all the time. She was tearful but denied feeling sad. Respirations were nonlabored and abdomen benign and without suprapubic tenderness. Antibiotics had been initiated overnight and were converted to oral antibiotics as noted above. Discharge plans were reviewed with Dr. Bolden. Basic metabolic panel will be checked within the next week. Continued fluid restriction recommended if at all possible. Stable for return home to [facility]. Time spent with patient: discharge greater than 30 minutes Discharge Plan - Med Rec/Dispo Hank Instructions: Hyponatremia (GEN) Prescriptions: New Cefpodoxime [Vantin] 200 mg PO BID 2 Days #4 tab Ferrous Sulfate [Feosol] 324 mg PO WB tab RisperiDONE [RisperDAL] 0.5 mg PO BID tab Senna + Docusate [Senna Plus Tablet] 2 tab PO BID tab Phenazopyridine [Pyridium Eq] 95 mg PO TID PRN tab PRN Reason: Urinary Pain Sertraline [Zoloft] 50 mg PO DAILY tab Continue Levothyroxine Sodium [Levoxyl] 75 mcg PO ACB #0 ClonazePAM [Klonopin] 1 tab PO BID PRN PRN Reason: Anxiety Guaifenesin/Dextromethorphan [Tussin Dm Syrup] 10 ml PO Q4H PRN PRN Reason: Cough Acetaminophen 650 mg PO PRN PRN Reason: Pain Losartan [Cozaar] 50 mg PO DAILY Lactase [Lactase Enzyme] 9,000 unit PO DAILY PRN PRN Reason: Indigestion DiphenhydrAMINE [Benadryl] 1 cap PO Q4H PRN PRN Reason: itching propranolol 10 mg tablet 10 mg PO QID tab Nitrostat (nitroglycerin) 0.4 mg sublingual tablet 0.4 mg SL Q5M PRN PRN Reason: Chest Pain Keppra (levetiracetam) 500 mg tablet 500 mg PO BID #60 tab Norvasc (amlodipine) 5 mg tablet 5 mg PO DAILY tab Glucophage (metformin) 1,000 mg tablet 1,000 mg PO BID Discontinued Nitroglycerin [Nitrostat] 0.3 mg SL Q5M PRN PRN Reason: Chest Pain Zoloft (sertraline) 100 mg tablet 100 mg PO Q24H Colace (Docusate sodium) 100 mg capsule 100 mg PO BID - Disposition 01 Discharged Home, Self-Care - Dismissal Complete Discharge Instructions are:: Complete
== END 2017-03-28 16:00 | disposition home or self-care (01) | DRG 641 ==
LOC: ED 05:37 → CCU 05:37 → SUATTDRO 07:47 → CCU 08:15 → MED 03-27 09:45
PROVIDERS: ADMIT Internal Medicine; ATTEND Internal Medicine